=== PATIENT | female | born 1930 | race Caucasian/White ===

== ENCOUNTER 2016-09-17 15:48 | Emergency (ER) | payer OTHER ==
[~2016-09-17 15:48] MED LIST: ATEN50TA8 PO; ONDA8TAB6 PO; OXYC-57 PO; SYN50 PO; SYN75 PO
[2016-09-17 15:53] VITALS: BP 174/114; PULSE 59; TEMP 36.6; O2SAT 96
--- NOTE | 2016-09-17 16:42 | EMERGENCY ROOM VISIT NOTE ---
History Report prepared by Tanner: Jean Pierre Haynes Under the Supervision of: Dr. Ishan Durán D.O. First contact with patient: 16:10 Chief Complaint: GI ASSESSMENT Stated Complaint: CONSTIPATION History of Present Illness The patient is an 86 year old female who presents to the Emergency Room with complaints of a persistent constipation beginning several days prior to arrival. As per daughter, the patient has been taking Metamucil for quite some time for constipation. The patient states she reached up her rectum to see what the problem was, and she felt a "bump" and scratched it. The daughter states the patient has not been eating enough. She notes the patient does not want to eat more, because she believes her previous meal has not been defecated. The patient denies a fever. 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 A total of 10 systems reviewed and were otherwise negative. Past Medical & Surgical Medical Problems: (1) Atrial premature beats (2) CKD (chronic kidney disease), stage III (3) Coarctation of aorta (4) DDD (degenerative disc disease) (5) Dementia (6) Dyslipidemia (7) Fall at home (8) GERD (gastroesophageal reflux disease) (9) Hypertension (10) Lacunar infarction (11) Open fracture of right distal radius and ulna (12) Osteoarthritis (13) Osteoporosis (14) Schatzki's ring (15) Thoracic compression fracture Surgical Problems: (1) H/O esophagogastroduodenoscopy (2) History of cataract surgery (3) S/p repair of cystocele and rectocele (4) S/P JAKE-BSO (total abdominal hysterectomy and bilateral salpingo- oophorectomy) Family History Heart disease Hypertension Social History Smoking Status: Never Smoker Drug Use: none Marital Status: Housing Status: lives with significant other Occupation Status: retired Current/Historical Medications Scheduled Atenolol (Tenormin), 50 MG PO BID Levothyroxine Sodium (Synthroid), 50 MCG PO ODD DAYS Levothyroxine Sodium (Synthroid), 75 MCG PO EVEN DAYS Allergies Coded Allergies: No Known Allergies (Unverified , 04/11/16) Physical Exam Vital Signs Date Time Temp Pulse Resp B/P Pulse Ox O2 Delivery O2 Flow Rate FiO2 09/17/16 15:53 36.6 59 18 174/114 96 Room Air Physical Exam CONSTITUTIONAL/VITAL SIGNS: Reviewed / noted above. GENERAL: Non-toxic in appearance. INTEGUMENTARY: Warm, dry, and [place]. HEAD: Normocephalic. EYES: without scleral icterus or trauma. ENT/OROPHARYNX: clear and moist. LYMPHADENOPATHY/NECK: Is supple without lymphadenopathy or meningismus. RESPIRATORY: Lungs clear and equal. CARDIOVASCULAR: Regular rate and rhythm. GI/ABDOMEN: Soft and nontender. No organomegaly or pulsatile mass. No rebound or guarding. Normal bowel sounds. RECTAL: Hemorrhoid int he 7 o'clock position that appears scratched and slightly irritated without active bleeding. Minimal amount of stool in the rectal vault. EXTREMITIES: Warm and well perfused. BACK: No CVA tenderness. NEUROLOGICAL: Intact without focal deficits. PSYCHIATRIC: normal affect. MUSCULOSKELETAL: Normally developed with good muscle tone. Medical Decision & Procedures ED Course 1620: Previous medical records were reviewed. The patient was evaluated in room B5. A complete history and physical examination was performed. 1640: On reevaluation, the patient is doing well. I discussed the results and findings with the patient. She verbalized agreement of the treatment plan. The patient was discharged home. Medical Decision The differential diagnoses include but are not limited to: constipation, rectal mass, rectal prolapse, hemorrhoids. This is an 86-year-old female who presents to the ED with a chief complaint that she feels like she broke something in her rectum after a attempted digital disimpaction. The patient has felt constipated recently and has been using Metamucil without success. The daughter states that the patient does not eat much and has been told in the past that she needs to eat more in order for her to have more normal bowel movements. The patient denies any abdominal pains or other symptoms. The patient's vital signs are stable. Exam reveals a nontender abdomen. It is nondistended. Rectal exam reveals an irritated hemorrhoid at the 7 o'clock position that appears to have been scratched. There was minimal stool in the rectal vault. The patient was told the results of the exam. She was told to eat more in order to have more regular bowel movements. She is felt to be stable for discharge at this point. She will follow-up with her PCP for any additional concerns or return here for worsening or new concerns. Impression Primary Impression: Hemorrhoids Additional Impression: hemorrhid abrasion Scribe Attestation The scribe's documentation has been prepared under my direction and personally reviewed by me in its entirety. I confirm that the note above accurately reflects all work, treatment, procedures, and medical decision making performed by me. Departure Information Dispostion Home / Self-Care Referrals Charla Ortiz M.D. (PCP) Forms HOME CARE DOCUMENTATION FORM, IMPORTANT VISIT INFORMATION Patient Instructions My [facility] Additional Instructions Eat more and eat regularly at least 3 times a day. Return for any concerns. Problem Qualifiers
[2017-02-15] MEDS ORDERED: ASPEC81 PO (11:47)
[2017-02-15] MEDS ORDERED: SYN75 PO (11:47)
[2017-02-15] MEDS ORDERED: LPT40 PO (11:47)
== END 2016-09-17 16:59 | disposition home or self-care (01) ==
LOC: C.EDB 15:49
DX: K64.9 Unspecified hemorrhoids (principal); S30.817A Abrasion of anus, initial encounter; X58.XXXA Exposure to other specified factors, initial encounter; I12.9 Hypertensive chronic kidney disease with stage 1 through stage 4 chronic kidney disease, or unspecified chronic kidney disease; N18.3 Chronic kidney disease, stage 3 (moderate); E78.5 Hyperlipidemia, unspecified; M19.90 Unspecified osteoarthritis, unspecified site; M81.0 Age-related osteoporosis without current pathological fracture; F03.90 Unspecified dementia, unspecified severity, without behavioral disturbance, psychotic disturbance, mood disturbance, and anxiety; Z87.81 Personal history of (healed) traumatic fracture; Z90.710 Acquired absence of both cervix and uterus; Z98.890 Other specified postprocedural states; Z79.899 Other long term (current) drug therapy; Z82.49 Family history of ischemic heart disease and other diseases of the circulatory system

== ENCOUNTER 2017-02-11 22:14 | Inpatient (IN) | payer OTHER ==
[~2017-02-11] VITALS: Ht 165.1 cm; Wt 40.0 kg
[~2017-02-11 22:14] MED LIST changes: -ONDA8TAB6 PO; -OXYC-57 PO
[2017-02-11] MEDS ORDERED: SODIUM CHLORIDE 0.9% 500ML 500 ML IV STA (22:41)
--- NOTE | 2017-02-11 22:44 | EMERGENCY ROOM VISIT NOTE ---
History Report prepared by Yaniibkerri: Lacie Francis Under the Supervision of: Dr. Mauricio Solomon M.D. First contact with patient: 22:26 Chief Complaint: STROKE SYMPTOMS Stated Complaint: CVA SX History of Present Illness The patient is an 86 year old female who presents to the Emergency Room with complaints of worsening stroke symptoms for the past 6 days. She was brought to the ED via EMS from home. The patient's family report they believe the patient has been ill for "quite a few days". Her daughter notes she visited the patient 6 days ago and noticed her speech seemed "off". The patient was walking normally at that visit. Earlier today, around 1300, two of her other daughters noticed the left side of the patients face seemed "a little droopy" and she was "mumbling and slurring", but otherwise seemed fine. The patient's told his daughters she had been "mumbling and talking weird" for the past few days. This evening around 1930 when the patients granddaughter visited, her symptoms were much more noticeable, so an ambulance was called. The patient denies any recent falls or injuries. She denies any recent fevers, headache, chest pain, shortness of breath, vomiting or urinary symptoms. She states she has been eating and drinking normally and moving her bowels and urinating normally. 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 A total of 10 systems reviewed and were otherwise negative. Past Medical & Surgical Medical Problems: (1) Atrial premature beats (2) CKD (chronic kidney disease), stage III (3) Coarctation of aorta (4) DDD (degenerative disc disease) (5) Dementia (6) Dyslipidemia (7) Fall at home (8) GERD (gastroesophageal reflux disease) (9) Hypertension (10) Lacunar infarction (11) Open fracture of right distal radius and ulna (12) Osteoarthritis (13) Osteoporosis (14) Schatzki's ring (15) Thoracic compression fracture Surgical Problems: (1) H/O esophagogastroduodenoscopy (2) History of cataract surgery (3) S/p repair of cystocele and rectocele (4) S/P JAKE-BSO (total abdominal hysterectomy and bilateral salpingo- oophorectomy) Family History Heart disease Hypertension Social History Smoking Status: Never Smoker Drug Use: none Marital Status: Housing Status: lives with significant other Occupation Status: retired Current/Historical Medications Scheduled Atenolol (Tenormin), 50 MG PO BID Levothyroxine Sodium (Synthroid), 50 MCG PO ODD DAYS Levothyroxine Sodium (Synthroid), 75 MCG PO EVEN DAYS Omeprazole (Prilosec), 20 MG PO DAILY Scheduled PRN Aspirin (Aspirin), 325 MG PO UD PRN for Pain Allergies Coded Allergies: No Known Allergies (Unverified , 02/11/17) Physical Exam Vital Signs Date Time Temp Pulse Resp B/P (MAP) Pulse Ox O2 Delivery O2 Flow Rate FiO2 02/11/17 23:37 66 21 169/84 97 Room Air 02/11/17 22:51 97 Room Air 02/11/17 22:26 69 02/11/17 22:25 37.0 62 18 179/98 97 Room Air Physical Exam GENERAL: Patient is in no acute distress. HEENT: No acute trauma, normocephalic atraumatic, mucous membranes moist, no nasal congestion, no scleral icterus. NECK: No stridor, no adenopathy, no meningismus, trachea is midline. LUNGS: Clear to auscultation bilaterally, no wheeze, no rhonchi, breath sounds equal. HEART: Subtle systolic murmur with an occasional extra beat, normal rate. ABDOMEN: Soft, nontender, bowel sounds positive, no hernias, no peritonitis. EXTREMITIES: No cyanosis or edema, full range of motion of all the joints without pain or difficulty, no signs for acute trauma. NEUROLOGIC: Speech slur noted and an occasional left facial droop when speaking. The patient is awake, seems oriented, some slight left leg drift and cerebellar disfunction, no upper extremity neurologic findings. SKIN: No rash, no jaundice, no diaphoresis. Medical Decision & Procedures ER Provider Diagnostic Interpretation: Radiology results as stated below per my review and interpretation: CHEST X-RAY No pneumonia or CHF seen. No mediastinal widening. CT HEAD No acute bleeding per my read. The radiologist read is currently pending. Laboratory Results 02/11/17 21:45 Red Blood Count 4.14, Mean Corpuscular Volume 97.6, Mean Corpuscular Hemoglobin 31.6, Mean Corpuscular Hemoglobin Concent 32.4, Mean Platelet Volume 11.6, Neutrophils (%) (Auto) 57.7, Lymphocytes (%) (Auto) 31.2, Monocytes (%) (Auto) 8.5, Eosinophils (%) (Auto) 1.8, Basophils (%) (Auto) 0.6, Neutrophils # (Auto) 5.07, Lymphocytes # (Auto) 2.74, Monocytes # (Auto) 0.75, Eosinophils # (Auto) 0.16, Basophils # (Auto) 0.05 02/11/17 21:45 Test 02/11/17 21:45 02/11/17 23:11 02/11/17 23:32 02/11/17 23:34 White Blood Count 8.79 K/uL (4.8-10.8) Red Blood Count 4.14 M/uL (4.2-5.4) Hemoglobin 13.1 g/dL (12.0-16.0) Hematocrit 40.4 % (37-47) Mean Corpuscular Volume 97.6 fL (80-100) Mean Corpuscular Hemoglobin 31.6 pg (25-34) Mean Corpuscular Hemoglobin Concent 32.4 g/dl (32-36) Platelet Count 193 K/uL (130-400) Mean Platelet Volume 11.6 fL (7.4-10.4) Neutrophils (%) (Auto) 57.7 % Lymphocytes (%) (Auto) 31.2 % Monocytes (%) (Auto) 8.5 % Eosinophils (%) (Auto) 1.8 % Basophils (%) (Auto) 0.6 % Neutrophils # (Auto) 5.07 K/uL (1.4-6.5) Lymphocytes # (Auto) 2.74 K/uL (1.2-3.4) Monocytes # (Auto) 0.75 K/uL (0.11-0.59) Eosinophils # (Auto) 0.16 K/uL (0-0.5) Basophils # (Auto) 0.05 K/uL (0-0.2) RDW Standard Deviation 49.2 fL (36.4-46.3) RDW Coefficient of Variation 13.7 % (11.5-14.5) Immature Granulocyte % (Auto) 0.2 % Immature Granulocyte # (Auto) 0.02 K/uL (0.00-0.02) Prothrombin Time 11.4 SECONDS (9.0-12.0) Prothromb Time International Ratio 1.1 (0.9-1.1) Activated Partial Thromboplast Time 25.7 SECONDS (21.0-31.0) Partial Thromboplastin Ratio 1.0 Anion Gap 5.0 mmol/L (3-11) Est Creatinine Clear Calc Drug Dose 19.0 ml/min Estimated GFR () 36.4 Estimated GFR (Non- 31.4 BUN/Creatinine Ratio 15.2 (10-20) Calcium Level 9.7 mg/dl (8.5-10.1) Magnesium Level 2.2 mg/dl (1.8-2.4) Total Bilirubin 0.6 mg/dl (0.2-1) Direct Bilirubin 0.1 mg/dl (0-0.2) Aspartate Amino Transf (AST/SGOT) 22 U/L (15-37) Alanine Aminotransferase (ALT/SGPT) 25 U/L (12-78) Alkaline Phosphatase 52 U/L (45-117) Total Creatine Kinase 77 U/L (26-192) Creatine Kinase MB 0.7 ng/ml (0.5-3.6) Creatine Kinase MB Ratio 0.9 (0-3.0) Total Protein 7.4 gm/dl (6.4-8.2) Albumin 4.0 gm/dl (3.4-5.0) Thyroid Stimulating Hormone (TSH) 18.700 uIu/ml (0.300-4.500) Free Thyroxine 1.02 ng/dl (0.80-1.60) Ammonia 20.0 umol/L (11-32) Bedside Glucose 85 mg/dl (70-90) Bedside Prothrombin Time INR 1.1 (0.9-1.1) Test 02/11/17 23:40 Urine Color YELLOW Urine Appearance CLEAR (CLEAR) Urine pH 8.0 (4.5-7.5) Urine Specific Simpson 1.009 (1.000-1.030) Urine Protein NEG (NEG) Urine Glucose (UA) NEG (NEG) Urine Ketones NEG (NEG) Urine Occult Blood NEG (NEG) Urine Nitrite NEG (NEG) Urine Bilirubin NEG (NEG) Urine Urobilinogen NEG (NEG) Urine Leukocyte Esterase NEG (NEG) Urine Opiates Screen NEG (NEG) Urine Methadone, Qualitative NEG (NEG) Urine Barbiturates NEG (NEG) Urine Phencyclidine (PCP) Level NEG (NEG) Ur Amphetamine/Methamphetamine NEG (NEG) MDMA (Ecstasy) Screen NEG (NEG) Urine Benzodiazepines Screen NEG (NEG) Urine Cocaine Metabolite NEG (NEG) Urine Marijuana (THC) NEG (NEG) Laboratory results reviewed by me. Medications Administered Medications (Trade) Dose Ordered Sig/Wily Route Start Time Stop Time Status Last Admin Dose Admin Sodium Chloride 500 ml @ 999 mls/hr Q31M STAT IV 02/11/17 22:41 02/11/17 23:11 DC 02/12/17 00:09 999 MLS/HR ECG Indication: weakness Rate (beats per minute): 70 Rhythm: sinus rhythm Findings: PAC, no acute ischemic change, no ectopy ED Course 2227: The patient was evaluated in room B4. A complete history and physical exam was performed. 2241: NSS 500 ml @ 999 mls/hr IV. 0035: I discussed the patients case with Dr. Bal, [facility] Hospitalist. The patient will be further evaluated. 0045: I reevaluated the patient. She is resting comfortably. I discussed her results and my recommendation she remain in the hospital for further evaluation and management and her family verbalized complete understanding and agreement. Medical Decision The differential diagnoses considered include stroke, intracranial bleeding, liver or renal failure, electrolyte imbalance, UTI, infection, dehydration. There is no leukocytosis or worrisome anemia. No significant electrolyte abnormality, kidney failure or hepatitis. Thyroid testing suggests the use of thyroid medication. Urinalysis does not show infection. Urine tox is negative. EKG shows a sinus rhythm with PACs, no acute ischemia. Cardiac enzyme testing times one is not consistent with acute cardiac injury. Chest film does not show pneumonia or CHF. No mediastinal widening. Brain CT reading is still pending however, on my review, there was no acute bleed or mass effect. There was no midline shift. Ammonia level is not elevated. The patient received IV saline, she is not a candidate for TPA as she has had ongoing symptoms for 6 days. Her presentation though is concerning for a subacute CVA. I spoke to the patient's family, case management is involved. Further care in the hospital and further workup is required. The on-call hospitalist has been consulted. Medication Reconcilliation Current Medication List: was personally reviewed by me Blood Pressure Screening Patient's blood pressure: Elevated blood pressure Blood pressure disposition: Referred to PCP Consults Time Called: 29 Consulting Physician: Angela Mcconnell Hospitalist Returned Call: 34 I discussed the patients case with Angela Mcconnell Hospitalist. The patient will be further evaluated. Impression Primary Impression: Stroke-like symptoms Scribe Attestation The scribe's documentation has been prepared under my direction and personally reviewed by me in its entirety. I confirm that the note above accurately reflects all work, treatment, procedures, and medical decision making performed by me. Departure Information Dispostion Being Evaluated By Hospitalist Referrals Charla Ortiz M.D. (PCP) Patient Instructions My [facility] Stroke History Time Last Known Well 6 days ago Stroke t-PA Criteria Reviewed Does NOT meet criteria for t-PA Reason t-PA Not Given Treatment not indicated (Last known well time was 6 days ago)
[2017-02-11 23:01] LABS: BASO % 0.6 %; BASO ABS # 0.05 K/uL (0-0.2); COMPLETE YES; EOS % 1.8 %; HEMATOCRIT 40.4 % (37-47); IG% 0.2 %; LYMPH % 31.2 %; LYMPH ABS # 2.74 K/uL (1.2-3.4); MEAN CELL VOLUME 97.6 fL (80-100); MEAN CORPUSCULAR HEMOGLOBIN 31.6 pg (25-34); MEAN CORPUSCULAR HGB CONC 32.4 g/dl (32-36); MEAN PLATELET VOLUME 11.6 fL (7.4-10.4); MONO % 8.5 %; NEUT % 57.7 %; PLATELET COUNT 193 K/uL (130-400); RED BLOOD COUNT 4.14 M/uL (4.2-5.4); WHITE BLOOD COUNT 8.79 K/uL (4.8-10.8)
[2017-02-11 23:08] LABS: BLOOD UREA NITROGEN 23 mg/dl (7-18); BUN/CREATININE RATIO 15.2 (10-20); CALCIUM 9.7 mg/dl (8.5-10.1); CARBON DIOXIDE 30 mmol/L (21-32); CHLORIDE 107 mmol/L (98-107); GLUCOSE 97 mg/dl (70-99); MAGNESIUM 2.2 mg/dl (1.8-2.4); SODIUM 142 mmol/L (136-145)
[2017-02-11 23:09] LABS: INR 1.1 (0.9-1.1); PROTHROMBIN TIME (PATIENT) 11.4 SECONDS (9.0-12.0)
[2017-02-11] MEDS ORDERED: PRLSR20 PO (23:13)
[2017-02-11] MEDS ORDERED: ASPI325T45 PO (23:13)
[2017-02-11 23:18] LABS: CKMB/CK RATIO 0.9 (0-3.0)
[2017-02-11 23:30] LABS: ALKALINE PHOSPHATASE 52 U/L (45-117); ALT/SGPT 25 U/L (12-78); AST/SGOT 22 U/L (15-37)
[2017-02-11 23:58] LABS: URINE APPEARANCE CLEAR (CLEAR); URINE BILIRUBIN NEG (NEG); URINE COLOR YELLOW; URINE NITRITE NEG (NEG); URINE SPECIFIC GRAVITY 1.009 (1.000-1.030); UROBILINOGEN NEG (NEG)
[2017-02-12] VITALS (8 sets, daily range): BP systolic 154–203; BP diastolic 69–102; PULSE 57–83; TEMP 36.4–36.8; O2SAT 94–98; Ht 165.1 cm; Wt 40.0 kg
[2017-02-12 00:07] LABS: MANUAL MICROSCOPIC REQUIRED? NO; REVIEW REQ? NO
[2017-02-12 00:29] LABS: BENZODIAZEPINE, URINE NEG (NEG); COCAINE,URINE NEG (NEG); PHENCYCLIDINE, URINE NEG (NEG)
[2017-02-12] MEDS ORDERED: ACETAMINOPHEN 325 MG TAB PO PRN (01:30)
[2017-02-12] MEDS ORDERED: ONDANSETRON INJ 2 MG/ML 2 ML VIAL IV PRN (01:30)
[2017-02-12] MEDS: NSS + 20MEQ KCL 1000ML 1,000 ML IV SCH ×2 (02:58→15:50)
--- NOTE | 2017-02-12 03:54 | HISTORY & PHYSICAL EXAMINATION ---
DATE OF ADMISSION: 02/12/2017 PRIMARY CARE PHYSICIAN: Dr. Ortiz. CHIEF COMPLAINT: Slurred speech with left facial droop for the last few days. HISTORY OF PRESENT COMPLAINT: She is an 86-year-old female with significant past medical history including chronic kidney disease, atrial premature beats, general osteoarthritis and osteoporosis, hypothyroidism, esophageal reflux, history of lacunar infarct, hypertension and hyperlipidemia. Apparently was noted by the family members that she has occasional slurred or garbled speech and also they noticed that she has some left facial droop as well. They were thinking it will go away but the condition got worse. She has saliva accumulating on the left cheek area and she does have slurred speech with definite left facial droop as of today. She has generalized weakness but does not have any weakness on any side and does not have any numbness or tingling in any of the extremities. She denies history of any visual symptoms, any headache or any blurred vision. She does not have any palpitation, any chest pain, any fever, chills or rigors, or shortness of breath. In the Emergency Room, she was hemodynamically stable and initial investigation came out to be unremarkable including CT scan of the head that did not show any acute bleed, but given the history and the finding and probable CVA, she was admitted to telemetry unit. PAST MEDICAL HISTORY: Significant for chronic kidney disease, history of atrial premature beats, general osteoarthritis and osteoporosis, hypertension, hyperlipidemia, esophageal stricture with reflux, and remote history of lacunar infarct. PAST SURGICAL HISTORY: Significant for total abdominal hysterectomy with bilateral salpingo-oophorectomy, repair of rectum and vagina, cataract surgery, history of fixation of right distal radial and ulnar fracture. FAMILY HISTORY: Mother from a stroke at the age of 69. Father had COPD. Sister osteoporosis. SOCIAL HISTORY: She is . She has 4 children. She lives with her . She never used any alcohol and/or any cigarettes and she has been reasonably active. REVIEW OF SYSTEMS: Other systemic review unremarkable except those mentioned in history of present illness. ALLERGIES: NKDA. MEDICATIONS: She has been on aspirin that was given today 325 mg, atenolol 50 mg twice daily, Synthroid 50 mcg odd days and 75 mcg even days, omeprazole 20 mg daily. PHYSICAL EXAMINATION: GENERAL: On examination in the Emergency Room, she was not having any acute distress, but her speech was slightly dysarthric and she did have left facial droop. VITAL SIGNS: Temperature 37.0, pulse of 66, blood pressure 169/84, saturation 97% on room air. HEENT: Unremarkable except left facial droop. No facial nerve palsy. NECK: Supple. CHEST: Clear to auscultation bilaterally. HEART: S1, S2, Irregular. ABDOMEN: Soft, benign, nontender, no organomegaly. Bowel sounds present. EXTREMITIES: Negative. MUSCULOSKELETAL: Did not show any acute arthritis involving any joint. CENTRAL NERVOUS SYSTEM: She was alert, awake, oriented x3. Cranial nerves II-XII intact except minimal left facial droop. No deviation of the eyes and/or outstretched tongue. No focal sensory and/or motor deficit. DTRs are 1 to 2+ in the lower extremities. Plantars downgoing. LABORATORY DATA: Noted today, white count was 8.79, H&H 13.1/40.4, platelet was 193. Sodium 142, potassium 4.0, chloride 107, carbon dioxide 30, BUN 23, creatinine 1.50, random glucose 85. LFTs unremarkable. Troponin negative. TSH was 18.700 and free T4 was normal at 1.02. PT/INR unremarkable, that is normal. Urine tox screen pending. UA examination negative. EKG was in sinus rhythm, rate of 70 per minute, normal axis and minor ST-T wave changes but nothing specific. Chest x-ray reported as negative. CT scan, we have not got the full report yet but verbally told that there is no bleeding and no acute infarct. IMPRESSION AND PLAN: 1. Stroke with left facial droop. Doubt Barroso,s Palsy The patient has been started on aspirin, we will continue with that. We will get MRI and MRA of the head and also monitor the patient and get an echocardiogram. Carotid ultrasound will be done as well.Neurology consulted. 2. Chronic kidney disease, seems to be stable. We will give a small amount of IV fluid and monitor kidney function. 3. Acquired hypothyroidism. TSH is pretty high, T4 is normal. We will get free T3 and continue with 75 mcg of thyroxine right now. 4. Esophageal reflux. Continue with Protonix. 5. Hypertension. Continue with beta jerrica. 6. Hyperlipidemia. Has not been taking any medications. We will add atorvastatin. 7. Deep venous thrombosis prophylaxis with subcutaneous heparin. 8. Code status. Discussed with the patient and family members, she will be full code. In my clinical judgment, the beneficiary meets criteria as per CMS for 2-midnight stay in the hospital. THIERRY
[2017-02-12] MEDS: HEPARIN SOD 5000 UNIT/0.5 ML CARP SQ SCH ×3 (06:17→21:06)
[2017-02-12] MEDS: LEVOTHYROXINE 75 MCG TAB PO SCH (06:17)
--- NOTE | 2017-02-12 06:32 | DIAGNOSTIC IMAGING REPORT ---
HEAD CT NONCONTRAST CT DOSE: 614.27 mGy.cm HISTORY: Right leg weakness. Stroke TECHNIQUE: Multiaxial CT images of the head were performed without the use of intravenous contrast. Automated exposure control was utilized for this study. A dose lowering technique was utilized adhering to the principles of ALARA. Comparison: None. Findings: Mucosal thickening and a fluid level within the right maxillary sinus resulting in near-complete opacification. The mastoid air cells are clear. The calvarium and skull base are intact. There is no mass, hematoma, midline shift, acute infarct. White matter hypodensity is nonspecific but suggestive of microvascular ischemic change. The ventricles and sulci demonstrate mild age-related involutional changes. A 1 cm hypodensity within the left external capsule. This is consistent within age-indeterminate lacunar infarct. Impression: 1. A 1 cm hypodensity within the left external capsule. This is consistent within age-indeterminate lacunar infarct. 2. No acute territorial infarct or intracranial hemorrhage. 3. Mild atrophy and microvascular ischemic changes. Electronically signed by: Conrad Romero M.D. 02/12/2017 6:31 AM Dictated Date/Time: 02/12/2017 6:29 AM
[2017-02-12 06:51] LABS: HEMATOCRIT 42.1 % (37-47); MEAN CELL VOLUME 97.9 fL (80-100); MEAN CORPUSCULAR HEMOGLOBIN 32.1 pg (25-34); MEAN CORPUSCULAR HGB CONC 32.8 g/dl (32-36); PLATELET COUNT 194 K/uL (130-400); WHITE BLOOD COUNT 8.23 K/uL (4.8-10.8)
[2017-02-12 07:22] LABS: BUN/CREATININE RATIO 14.6 (10-20); CALCIUM 9.1 mg/dl (8.5-10.1); CREATININE 1.2 mg/dl (0.60-1.20); MAGNESIUM 2.1 mg/dl (1.8-2.4); POTASSIUM 3.7 mmol/L (3.5-5.1)
[2017-02-12 07:26] LABS: CHOLESTEROL/HDL RATIO 3.7
--- NOTE | 2017-02-12 07:55 | DIAGNOSTIC IMAGING REPORT ---
CHEST ONE VIEW PORTABLE HISTORY: Stroke like symptoms. Slurred speech. COMPARISON: None. FINDINGS: The lungs are hyperexpanded with apical predominant emphysematous changes. No pneumothorax. No pleural effusions. The heart is normal in size. The right lung is clear. Interstitial thickening at the left lung base. IMPRESSION: 1. Emphysema. 2. Left basilar interstitial thickening. This could represent atelectasis or developing pneumonia. Electronically signed by: Conrad Romero M.D. 02/12/2017 7:54 AM Dictated Date/Time: 02/12/2017 7:53 AM
[2017-02-12] MEDS: ATORVASTATIN 40 MG TAB PO SCH (07:58)
[2017-02-12] MEDS: ASPIRIN 81 MG ECTAB PO SCH (07:58)
[2017-02-12] MEDS: PANTOprazole SOD 40 MG TAB PO SCH (09:00)
--- NOTE | 2017-02-12 14:20 | NEUROLOGY CONSULTATION ---
DATE OF CONSULTATION: 02/12/2017 REASON FOR CONSULTATION: Slurred speech, facial droop. HISTORY OF PRESENT ILLNESS: The patient is an 86-year-old right-handed female with chronic kidney disease, atrial premature beats, osteoarthritis, osteoporosis, hypothyroidism, reflux, radiographic lacunar infarction, hypertension, hyperlipidemia. Yesterday it was noted that the patient's speech was slurred and they monitored the patient. The dysarthria was waxing and waning and then associated with a flattened left nasolabial fold. Because of the ongoing symptoms, she was brought into the Emergency Room. Her daughter did note that she had some difficulty getting up, but they did not notice any unilateral weakness. The patient denies any neurologic symptoms. Her daughter indicates that she has some cognitive impairment. She lives with her . On questioning, the patient is awake and alert. She does not know why she is in the hospital but is able to state that she is in the hospital. She does not know the year. She denies any headache, chest pain, palpitations. Per review of systems and the hospitalist, there was no shortness of breath. CT of the head noncontrast shows a left external capsule lacune, mild atrophy and microvascular changes. Chest x-ray: Emphysema, basilar interstitial thickening. PAST MEDICAL HISTORY: As above including esophageal stricture. PAST SURGICAL HISTORY: Total abdominal hysterectomy, bilateral salpingo-oophorectomy, repair of rectum and vagina, cataract surgery right, fixation of right distal radial ulnar fracture. FAMILY HISTORY: Mother had a stroke at 69. Father, COPD. SOCIAL HISTORY: Nonsmoker, nondrinker. Lives with her . REVIEW OF SYSTEMS: As above, otherwise unreliable. ALLERGIES: No allergies. The patient was not on aspirin prior to this event, was given 325 at the hospital, atenolol 50, Synthroid and omeprazole. LABORATORY DATA: White count 8.8, H&H 13/40, platelet count 193. PT 11.4, PTT 25.7. Chemistry profile: BUN, creatinine 23/1.5, otherwise unremarkable with the exception of TSH being 18.7. Urinalysis negative. Tox screen negative. Electrocardiogram, sinus rhythm with PACs. PHYSICAL EXAMINATION: GENERAL: The patient is awake and alert. Her speech is modestly dysarthric. There is no word finding difficulty. There is some denial. HEENT: There are no carotid bruits. HEART: No heart murmurs. Regular rate and rhythm. LUNGS: Clear. ABDOMEN: Soft and nontender. She is fairly cachectic in appearance. NEUROLOGIC: Pupils are postsurgical on the right, normal on the optic nerve. Unable to visualize the optic nerve on the left. There are normal carvalho. There is a left visual extinction, modest dysarthria, decreased left nasolabial fold. Motor: left arm 4/5, left lower extremity 4+/5. There is a left drift with decreased left rapid alternating movements. Symmetric reflexes. Query left double simultaneous stimulation extinction. Reflexes symmetric. Toes downgoing. Gait not tested. IMPRESSION: Presumed large vessel right middle cerebral artery infarction. PLAN: Antiplatelet therapy, permissive hypertension. MRI brain, carotid ultrasound, echo, telemetric monitoring. PT, OT, speech therapy consultation. DIONTED
--- NOTE | 2017-02-12 20:25 | Progress Note ---
Medicine Progress Note Date & Time of Visit: Feb 12, 2017 at 18:15 . Subjective Admitted last night with left facial droop and dysarthria. No new neuro symptoms today. No headache. No chest pain. No cough or SOB. No nausea or vomiting. and daughter visiting. . Objective Last 8 Hrs Date Time Temp Pulse Resp B/P (MAP) Pulse Ox O2 Delivery O2 Flow Rate FiO2 02/12/17 19:35 36.6 60 18 183/69 (107) 96 Room Air 02/12/17 16:00 Room Air 02/12/17 15:23 36.7 62 18 167/87 (113) 97 Room Air 02/12/17 15:22 83 94 Physical Exam: General- no distress Eyes- anicteric Neck- no JVD Lungs- clear to A&P Heart- RRR Abdomen- + BS, soft, nontender Extremities- no pretibial edema or calf tenderness Neuro- alert; confused; EOMI; left facial palsy; dysarthria; left upper extremity 4/5; plantar reflexes downgoing bilat . Laboratory Results: Last 24 Hours Test 02/11/17 21:45 02/11/17 23:11 02/11/17 23:32 02/11/17 23:34 White Blood Count 8.79 K/uL Red Blood Count 4.14 M/uL Hemoglobin 13.1 g/dL Hematocrit 40.4 % Mean Corpuscular Volume 97.6 fL Mean Corpuscular Hemoglobin 31.6 pg Mean Corpuscular Hemoglobin Concent 32.4 g/dl Platelet Count 193 K/uL Mean Platelet Volume 11.6 fL Neutrophils (%) (Auto) 57.7 % Lymphocytes (%) (Auto) 31.2 % Monocytes (%) (Auto) 8.5 % Eosinophils (%) (Auto) 1.8 % Basophils (%) (Auto) 0.6 % Neutrophils # (Auto) 5.07 K/uL Lymphocytes # (Auto) 2.74 K/uL Monocytes # (Auto) 0.75 K/uL Eosinophils # (Auto) 0.16 K/uL Basophils # (Auto) 0.05 K/uL RDW Standard Deviation 49.2 fL RDW Coefficient of Variation 13.7 % Immature Granulocyte % (Auto) 0.2 % Immature Granulocyte # (Auto) 0.02 K/uL Prothrombin Time 11.4 SECONDS Prothromb Time International Ratio 1.1 Activated Partial Thromboplast Time 25.7 SECONDS Partial Thromboplastin Ratio 1.0 Sodium Level 142 mmol/L Potassium Level 4.0 mmol/L Chloride Level 107 mmol/L Carbon Dioxide Level 30 mmol/L Anion Gap 5.0 mmol/L Blood Urea Nitrogen 23 mg/dl Creatinine 1.50 mg/dl Est Creatinine Clear Calc Drug Dose 19.0 ml/min Estimated GFR () 36.4 Estimated GFR (Non- 31.4 BUN/Creatinine Ratio 15.2 Random Glucose 97 mg/dl Calcium Level 9.7 mg/dl Magnesium Level 2.2 mg/dl Total Bilirubin 0.6 mg/dl Direct Bilirubin 0.1 mg/dl Aspartate Amino Transf (AST/SGOT) 22 U/L Alanine Aminotransferase (ALT/SGPT) 25 U/L Alkaline Phosphatase 52 U/L Total Creatine Kinase 77 U/L Creatine Kinase MB 0.7 ng/ml Creatine Kinase MB Ratio 0.9 Troponin I < 0.015 ng/ml Total Protein 7.4 gm/dl Albumin 4.0 gm/dl Thyroid Stimulating Hormone (TSH) 18.700 uIu/ml Free Thyroxine 1.02 ng/dl Ammonia 20.0 umol/L Bedside Glucose 85 mg/dl Bedside Prothrombin Time INR 1.1 Test 02/11/17 23:40 02/12/17 06:33 Urine Color YELLOW Urine Appearance CLEAR Urine pH 8.0 Urine Specific Bernard 1.009 Urine Protein NEG Urine Glucose (UA) NEG Urine Ketones NEG Urine Occult Blood NEG Urine Nitrite NEG Urine Bilirubin NEG Urine Urobilinogen NEG Urine Leukocyte Esterase NEG Urine Opiates Screen NEG Urine Methadone, Qualitative NEG Urine Barbiturates NEG Urine Phencyclidine (PCP) Level NEG Ur Amphetamine/Methamphetamine NEG MDMA (Ecstasy) Screen NEG Urine Benzodiazepines Screen NEG Urine Cocaine Metabolite NEG Urine Marijuana (THC) NEG White Blood Count 8.23 K/uL Red Blood Count 4.30 M/uL Hemoglobin 13.8 g/dL Hematocrit 42.1 % Mean Corpuscular Volume 97.9 fL Mean Corpuscular Hemoglobin 32.1 pg Mean Corpuscular Hemoglobin Concent 32.8 g/dl RDW Standard Deviation 49.1 fL RDW Coefficient of Variation 13.8 % Platelet Count 194 K/uL Mean Platelet Volume 11.0 fL Sodium Level 145 mmol/L Potassium Level 3.7 mmol/L Chloride Level 108 mmol/L Carbon Dioxide Level 30 mmol/L Anion Gap 7.0 mmol/L Blood Urea Nitrogen 18 mg/dl Creatinine 1.20 mg/dl Est Creatinine Clear Calc Drug Dose 22.8 ml/min Estimated GFR () 47.7 Estimated GFR (Non- 41.2 BUN/Creatinine Ratio 14.6 Random Glucose 83 mg/dl Calcium Level 9.1 mg/dl Magnesium Level 2.1 mg/dl Triglycerides Level 75 mg/dl Cholesterol Level 276 mg/dl HDL Cholesterol 75 mg/dl LDL Cholesterol, Calculated 186 mg/dl VLDL Cholesterol, Calculated 15 mg/dl Cholesterol/HDL Ratio 3.7 Free Triiodothyronine 1.62 pg/ml Assessment & Plan PROBABLE RIGHT MCA STROKE Neurology consulted. 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 MRI pending. Not candidate for TPA due to duration of symptoms. Continue aspirin. LDL-c = 186. Started on atorvastatin. Check carotid duplex. Check echo. 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 HYPERTENSION BP's elevated, but should allow permissive hypertensive in setting of acute stroke. Continue atenolol. Follow. Gradually titrate Rx. CKD IV History of CKD IV with baseline creatinine around 1.7 and estimated GFR in high 20's. Serum creatinine 1.5 at admission. Follow. GERD Continue PPI. HYPOTHYROIDISM TSH 18.7. Prescribed levothyroxine as outpatient. Need to review labs and Rx history. DEMENTIA Baseline cognitive impairment. Monitor for delirium. VTE PROPHYLAXIS SQ heparin. Ambulate. DISPOSITION Anticipate need for skilled care or rehab. Consult Case Management. Primary Care follow-up at [facility]. . Consultants: Neurology with Dr. Avilez. . Current Inpatient Medications: Current Inpatient Medications Medications (Trade) Dose Ordered Sig/Wily Route Start Time Stop Time Status Last Admin Dose Admin Heparin Sodium (Porcine) (Heparin Sq 5000 Unit/0.5ml) 5,000 unit Q8 SQ 02/12/17 06:00 03/14/17 05:59 02/12/17 14:00 5,000 UNIT Potassium Chloride/Sodium Chloride 1,000 ml @ 75 mls/hr [id number] IV 02/12/17 02:30 03/14/17 02:29 02/12/17 02:58 75 MLS/HR Acetaminophen (Tylenol Tab) 650 mg Q4H PRN PO 02/12/17 01:30 03/14/17 01:29 Ondansetron HCl (Zofran Inj) 4 mg Q6H PRN IV 02/12/17 01:30 03/14/17 01:29 Atenolol (Tenormin Tab) 50 mg BID PO 02/12/17 09:00 03/14/17 08:59 02/12/17 07:58 50 MG Levothyroxine Sodium (Synthroid Tab) 75 mcg DAILYBB PO 02/12/17 06:00 03/14/17 06:59 02/12/17 06:17 75 MCG Pantoprazole Sodium (Protonix Tab) 40 mg QAM PO 02/12/17 09:00 03/14/17 08:59 02/12/17 09:00 40 MG Aspirin (Ecotrin Tab) 81 mg QAM PO 02/12/17 09:00 03/14/17 08:59 02/12/17 07:58 81 MG Atorvastatin Calcium (Lipitor Tab) 40 mg QAM PO 02/12/17 09:00 03/14/17 08:59 02/12/17 07:58 40 MG Enteral Nutritional Formula (Boost Pudding) 1 cup BID@1000,2100 PO 02/12/17 21:00 03/14/17 20:59
[2017-02-12] MEDS: BOOST VANILLA PUDDING CUP PO SCH (21:22)
--- NOTE | 2017-02-12 22:22 | DIAGNOSTIC IMAGING REPORT ---
ORBIT RADIOGRAPHS 3 VIEWS HISTORY: pre-MRI screening. COMPARISON: None. FINDINGS: There are no radiopaque foreign bodies identified within the orbits. IMPRESSION: No radiopaque foreign bodies identified within the orbits. Electronically signed by: Gabe Salvador M.D. 02/12/2017 10:21 PM Dictated Date/Time: 02/12/2017 10:21 PM
[2017-02-13] VITALS (8 sets, daily range): BP systolic 139–178; BP diastolic 63–89; PULSE 53–72; TEMP 36.6–37.1; O2SAT 95–98
[2017-02-13] MEDS: LEVOTHYROXINE 75 MCG TAB PO SCH (06:05)
--- NOTE | 2017-02-13 06:49 | DIAGNOSTIC IMAGING REPORT ---
BRAIN WITHOUT CONTRAST HISTORY: Mental status change STROKE TECHNIQUE: Multiplanar multisequence MRI of the brain was performed without the use of contrast. COMPARISON STUDY: None. FINDINGS: Focal acute infarct posterior aspect right internal capsule. No additional acute ischemic foci are identified. Findings of age-related chronic small vessel change and atrophy. Midline. Mild mucosal thickening of the ethmoid and maxillary sinuses. IMPRESSION: 1. Acute infarct posterior aspect right internal capsule. 2. Age-related atrophy and chronic small vessel change. The above report was generated using voice recognition software. It may contain grammatical, syntax or spelling errors. Electronically signed by: Ant Johnson M.D. 02/13/2017 6:48 AM Dictated Date/Time: 02/13/2017 6:46 AM
--- NOTE | 2017-02-13 08:13 | DIAGNOSTIC IMAGING REPORT ---
ULTRASOUND OF THE CAROTID ARTERIES CLINICAL HISTORY: Stroke. COMPARISON STUDY: No priors. TECHNIQUE: Real-time, grayscale, and color Doppler sonography of the carotid arteries is performed. Images are reviewed in the transverse and longitudinal planes. FINDINGS: Blood pressure in the right arm measures 149/85 and blood pressure in the left arm measures 153/91. The carotid arteries are patent bilaterally and demonstrate antegrade flow. There is mild atherosclerotic plaque seen. Normal doppler arterial waveforms are seen throughout. Velocity measurements are listed below. Common carotid peak systolic velocity (cm/sec): RIGHT: 62 LEFT: 63 ICA proximal peak systolic velocity (cm/sec): RIGHT: 42 LEFT: 33 ICA mid peak systolic velocity (cm/sec): RIGHT: 49 LEFT: 35 ICA distal peak systolic velocity (cm/sec): RIGHT: 41 LEFT: 36 ICA/CC peak systolic ratio: RIGHT: 0.8 LEFT: 0.6 Antegrade flow was shown in the vertebral arteries. The external carotid arteries are patent. IMPRESSION: 1. There is no sonographic evidence of hemodynamically significant stenosis in the right or left carotid arterial system. 2. Antegrade flow is shown in the vertebral arteries. Electronically signed by: Mauricio Tavera M.D. 02/13/2017 8:12 AM Dictated Date/Time: 02/13/2017 8:11 AM
--- NOTE | 2017-02-13 08:38 | ECHOCARDIOGRAM REPORT ---
*NOTICE TO RECEIVING DEMOCRAT AGENCY This information is strictly Confidential and protected under [place] law. [place] law prohibits you from making any further disclosure of this information unless further disclosure is expressly permitted by the written consent of the person to whom it pertains or is authorized by law. A general authorization for the release of medical or other information is not sufficient for this purpose. Hospital accepts no responsibility if the information is made available to any other person, INCLUDING THE PATIENT. Interpretation Summary * Name: SANDRA HARTLEY Study Date: 02/12/2017 12:55 PM BP: 167/79 mmHg * Patient Location: C.2T\S\S231\S\1 HR: 57 * : 1930 (M/d/yyyy) Gender: Female Height: 65 in * Age: 86 yrs Ethnicity: CA Weight: 96 lb * Ordering Physician: Jammie Bal * Referring Physician: Self, Referred * Performed By: Marlen Jackson RDCS * * Reason For Study: Stroke, rule out embolic source * BSA: 1.4 m2 * -- Conclusions -- * Technically difficult and limited study due to patient characteristics. * The left ventricular wall motion is normal. * Ejection Fraction = 55-60%. * The aortic valve is not well visualized. * The Doppler evaluation of the aortic valve in the apical window is insufficient. * Based on limited evaluation on the parasternal images (image 17 and 18/66) there is no significant aortic stenosis or aortic regurgitation. * There is no evidence of atrial septal defect, but resolution does not allow assessment for a patent foramen ovale. Procedure Details * A complete two-dimensional transthoracic echocardiogram was performed (2D, M-mode, Doppler and color flow Doppler). * Limited views were obtained. * There were technical limitations due to patient'sinability to cooperate Left Ventricle * The left ventricle is normal in size. * There is normal left ventricular wall thickness. * Left ventricular systolic function is normal. * Ejection Fraction = 55-60%. * The left ventricular wall motion is normal. Right Ventricle * The right ventricle is normal size. * The right ventricular systolic function is normal as assessed by tricuspid annular plane systolic excursion (TAPSE) (normal >1.5 cm). Atria * The left atrial size is normal. * Right atrial size is normal. * There is no evidence of atrial septal defect, but resolution does not allow assessment for a patent foramen ovale. Mitral Valve * The mitral valve is normal. * There is no mitral valve stenosis. * Significant mitral regurgitation is absent. Tricuspid Valve * The tricuspid valve is normal. * There is no tricuspid stenosis. * Significant tricuspid regurgitation is absent. Aortic Valve * The aortic valve is not well visualized. * The Doppler evaluation of the aortic valve in the apical window is insufficient. Based on limited evaluation on the parasternal images (image 17 and 18/66) there is no significnt aortic stenosis or aortic regurgitation. Pulmonic Valve * The pulmonary valve is not well seen, but the Doppler examination is normal without significant regurgitation or stenosis. Great Vessels * The aortic root and proximal ascending aorta are normal sized. Pericardium/Pleural * There is no pericardial effusion. Great Vessels * Normal inferior vena cava size and collapsability with sniff indicates a normal right atrial pressure of 3 mmHg Left Ventricular Diastolic Function * Grade I diastolic dysfunction, (abnormal relaxation pattern). MMode 2D Measurements and Calculations IVSd 0.79 cm LVIDd 2.8 cm LVIDs 2.1 cm LVPWd 0.84 cm IVS/LVPW 0.94 FS 26.9 % EDV(Teich) 30.7 ml ESV(Teich) 14.1 ml EF(Teich) 54.2 % EDV(cubed) 23.0 ml ESV(cubed) 9.0 ml EF(cubed) 60.9 % LV mass(C)d 55.8 grams LV mass(C)dI 38.5 grams/m\S\2 SV(Teich) 16.7 ml SI(Teich) 11.5 ml/m\S\2 SV(cubed) 14.0 ml SI(cubed) 9.7 ml/m\S\2 Ao root diam 3.2 cm Ao root area 8.1 cm\S\2 ACS 1.7 cm LA dimension 2.1 cm asc Aorta Diam 2.9 cm LA/Ao 0.66 LVOT diam 2.0 cm LVOT area 3.1 cm\S\2 Doppler Measurements and Calculations MV E max maryann 72.3 cm/sec MV A max maryann 83.9 cm/sec MV E/A 0.86 MV dec time 0.17 sec Ao V2 max 73.7 cm/sec Ao max PG 2.2 mmHg Ao max PG (full) 0.65 mmHg MELA(V,A) 2.6 cm\S\2 MELA(V,D) 2.6 cm\S\2 LV V1 max PG 1.5 mmHg LV V1 max 61.6 cm/sec PA acc slope 413.3 cm/sec\S\2 PA acc time 0.11 sec TR max maryann 266.0 cm/sec PA pr(Accel) 31.5 mmHg
--- NOTE | 2017-02-13 08:45 | Clinical Documentation Query ---
KACY Pak : CLINICAL DOCUMENTATION QUERIES QUERY 1 OF 2 Patient is an 86 year old female admitted for evaluation and treatment of probable right MCA stroke. BMI noted to be 14.5 kg/m*m. EMR weight of 39.6 Kg this a.m. EMR weight 04/12/16 was 58 Kg. This represents a loss of greater than 31% of initial body weight over this ten month interval. She has been seen in consultation by a administrative staff supervisor. Noted to be eating only 25-50% of meals. Risk factors include advanced age, prior CVA, current CVA. She is being monitored with I/O, daily weights, and serial chemistries, and seen in consultation by administrative staff supervisor and MOLD MA[employer]ER P[employer] MOLDS with appropriate recommendations, ordered boost pudding. In your clinical opinion is this patient being managed for: (x ) Severe protein-calorie malnutrition ( ) Other explanation of clinical findings (Please Explain) ( ) Unable to determine (Please Define) ( ) Need to Discuss ( ) Not Agree The medical record reflects the following clinical findings, treatment, and risk factors. Clinical Indicators: As above Treatment: I/O, daily weights, and serial chemistries, and seen in consultation by administrative staff supervisor and MOLD MAKER P[employer] MOLDS with appropriate recommendations, ordered boost pudding. Risk Factors: advanced age, prior CVA, current CVA, dementia ASPEN Criteria: Malnutrition in Chronic Illness Severe Malnutrition defined by 2 of the following 6 criteria: Severe Malnutrition ENERGY INTAKE <75% of estimated energy requirement for > 1month <75% of estimated energy requirement for > 1 month WEIGHT >5%/1 month >7.5%/3 months >10%/6months >20%/1year BODY FAT *loss of SQ fat from the orbits, triceps, or fat overlying the ribs MUSCLE MASS *muscle wasting at the temples, clavicles, shoulders, interosseous spaces, scapula, thigh, calf FLUID ACCUMULATION *localized or generalized edema of the extremities, vulva, scrotum weight loss may be masked by edema TOOL AND DIE MAKER APPRENTICE STRENGTH N/A measurably decreased per the device's standards QUERY 2 OF 2 Per prior query, BMI noted to be 14.5 kg/m*m. In order to capture this clinically important information, the associated medical condition/diagnosis must explicitly be documented by the provider. Consider clarification as suggested below. Thank you. In your clinical opinion is this patient being managed for: ( ) Cachexia; BMI 14.5 kg/m*m ( ) Other explanation of clinical findings (Please Explain) ( ) Unable to determine (Please Define) ( ) Need to Discuss ( x ) Not Agree The medical record reflects the following clinical findings, treatment, and risk factors. Clinical Indicators: As above Treatment: Diet, speech consultations, Boost pudding supplementation, I/O, daily weights, serial labs. Risk Factors: Age, dementia Please clarify and document your clinical opinion in the progress notes and discharge summary. Terms such as "probable", "suspected", "likely", "questionable", "possible", or "still to be ruled out" are acceptable. IF IN AGREEMENT, YOU MUST DOCUMENT ABOVE DIAGNOSTIC STATEMENT IN DAILY PROGRESS NOTES AND DISCHARGE SUMMARY. This document is not part of the patient's record. Thank You, Orlando Soliman, SOREN [phone]
[2017-02-13] MEDS: ATORVASTATIN 40 MG TAB PO SCH (08:46)
[2017-02-13] MEDS: ASPIRIN 81 MG ECTAB PO SCH (08:46)
[2017-02-13] MEDS: PANTOprazole SOD 40 MG TAB PO SCH (08:47)
[2017-02-13] MEDS: HEPARIN SOD 5000 UNIT/0.5 ML CARP SQ SCH ×2 (08:48→20:10)
[2017-02-13] MEDS: BOOST VANILLA PUDDING CUP PO SCH ×2 (10:00→20:04)
--- NOTE | 2017-02-13 13:37 | DIAGNOSTIC IMAGING REPORT ---
VIDEO SWALLOW HISTORY: Aspiration s/s of aspiration secondary to cava TECHNIQUE: Video fluoroscopic evaluation of swallowing was performed in the AP and lateral projections by the speech pathology staff. The patient is fed nectar-thick and thin liquid barium, a barium coated wafer, and barium pudding. FLUOROSCOPY TIME: 2.2 minutes. COMPARISON STUDY: None. FINDINGS: There is normal hyoid excursion and epiglottic deflection. Evidence for positive aspiration with thin liquids. Semisolid liquids/thicker liquids showed a smaller degree of penetration. Persistent penetration despite several attempts at swallow modification. IMPRESSION: 1. Persistent aspiration, most severe within liquids. 2. Please see the speech pathologist report for detailed findings and recommendations. The above report was generated using voice recognition software. It may contain grammatical, syntax or spelling errors. Electronically signed by: Ant Johnson M.D. 02/13/2017 1:35 PM Dictated Date/Time: 02/13/2017 1:33 PM
[2017-02-13] MEDS ORDERED: GUAIFENESIN SUGAR FREE 100 MG/5 ML UDC PO PRN (14:00)
--- NOTE | 2017-02-13 21:18 | Progress Note ---
Medicine Progress Note Date & Time of Visit: Feb 13, 2017 at 18:10 . Subjective No headache. No new neurologic symptoms. Video fluoroscopic swallowing study performed earlier today; aspiration of thin liquids was noted and recommendations made by Speech Therapy. No chest pain. No cough or shortness of breath. No nausea or vomiting. . Objective Last 8 Hrs Date Time Temp Pulse Resp B/P (MAP) Pulse Ox O2 Delivery O2 Flow Rate FiO2 02/13/17 20:00 Room Air 02/13/17 19:16 36.9 59 20 158/80 (106) 96 Room Air 02/13/17 16:00 Room Air 02/13/17 15:32 36.9 58 18 156/77 (103) 96 Room Air Physical Exam: General- no distress Eyes- anicteric Neck- no JVD Lungs- clear to A&P Heart- RRR Abdomen- + BS, soft, nontender Extremities- no pretibial edema or calf tenderness Neuro- alert; somewhat confused; EOMI; left facial palsy; dysarthria; left upper extremity 4/5; left lower extremity 4+/5 . Assessment & Plan STROKE Neurology consulted. 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 MRI demonstrated acute nonhemorrhagic stroke involving the posterior aspect of the right internal capsule as well as age-related atrophy and chronic small vessel changes. Not candidate for TPA due to duration of symptoms. Continue aspirin. LDL-c = 186. Started on atorvastatin. Carotid duplex did not show any significant stenosis. Echocardiogram did not show any significant valvular disease, mural thrombi. PT / OT / LOSS PREVENTION REPRESENTATIVE evaluations obtained. VTE fluoroscopic swallowing study demonstrated aspiration of thin liquids. LOSS PREVENTION REPRESENTATIVE recommendations: 1.Mechanical soft diet with NECTAR thick liquids. Please use thickener in liquid supplements. 2.Aspiration and GERD precautions. NO straws. Fully upright for all p.o. intake and for 30-60 minutes after meals. HOB elevated to 30 degrees at all times, to include while asleep. 3.Safe swallow strategies: NO MIXED consistencies (i.e., cereal in milk, soups that contain solid pieces and liquid, fruit such as oranges and grapefruit). Monitor for oral pocketing during meals. Cues for double swallow after each bite/sip. 4.Stringent oral care to reduce oral bacteria that can be aspirated in saliva. This includes brushing all surfaces of the tongue and mouth prior to and after meals, as well as before bed. 5.Speech will continue to follow as an inpatient. Would benefit from continued speech therapy upon discharge. This includes further education and training with diet and safe swallow strategies. Would also benefit from generalized pharyngeal strengthening exercises and thermal gustatory stimulation for improved swallow reflex time. HYPERTENSION BP's elevated at times, but should allow permissive hypertensive in setting of acute stroke. Blood pressure this morning 149/66. Continue atenolol. Follow and titrate therapy. CKD IV History of CKD IV with baseline creatinine around 1.7 and estimated GFR in high 20's. Serum creatinine 1.5 at admission. Follow. GERD Continue PPI. HYPOTHYROIDISM TSH 18.7. Current dose of levothyroxine is 50 mcg alternating with 75 mcg. Increase dose to 75 mcg daily. DEMENTIA Baseline cognitive impairment. Monitor for delirium. VTE PROPHYLAXIS SQ heparin. Ambulate. DISPOSITION Anticipate need for skilled care or rehab. Consult Case Management. Primary Care follow-up at [facility]. . Consultants: Neurology with Dr. Avilez. . Current Inpatient Medications: Current Inpatient Medications Medications (Trade) Dose Ordered Sig/Wily Route Start Time Stop Time Status Last Admin Dose Admin Acetaminophen (Tylenol Tab) 650 mg Q4H PRN PO 02/12/17 01:30 03/14/17 01:29 Ondansetron HCl (Zofran Inj) 4 mg Q6H PRN IV 02/12/17 01:30 03/14/17 01:29 Atenolol (Tenormin Tab) 50 mg BID PO 02/12/17 09:00 03/14/17 08:59 02/13/17 08:47 50 MG Levothyroxine Sodium (Synthroid Tab) 75 mcg DAILYBB PO 02/12/17 06:00 03/14/17 06:59 02/13/17 06:05 75 MCG Pantoprazole Sodium (Protonix Tab) 40 mg QAM PO 02/12/17 09:00 03/14/17 08:59 02/13/17 08:47 40 MG Aspirin (Ecotrin Tab) 81 mg QAM PO 02/12/17 09:00 03/14/17 08:59 02/13/17 08:46 81 MG Atorvastatin Calcium (Lipitor Tab) 40 mg QAM PO 02/12/17 09:00 03/14/17 08:59 02/13/17 08:46 40 MG Enteral Nutritional Formula (Boost Pudding) 1 cup BID@1000,2100 PO 02/12/17 21:00 03/14/17 20:59 02/13/17 20:04 1 CUP Heparin Sodium (Porcine) (Heparin Sq 5000 Unit/0.5ml) 5,000 unit Q12 SQ 02/13/17 09:00 03/15/17 08:59 02/13/17 20:10 5,000 UNIT
--- NOTE | 2017-02-13 22:51 | PROGRESS NOTE ---
DATE: 02/13/2017 I am seeing Mrs. Stokes in followup. Her MRI of the brain shows an acute infarct in the posterior limb of the right internal capsule. Carotid ultrasound shows no significant stenosis. Video fluoroscopy shows persistent aspiration, most severe with liquids. Echocardiogram, no significant aortic stenosis, no ASD. Resolution does not allow for a PFO. PHYSICAL EXAMINATION: The patient is awake and alert. Speech is modestly dysarthric. There is a mild flattening of the left nasolabial fold. I do not appreciate any visual extinction. There is minimal weakness to the left arm. IMPRESSION: Lacunar infarction, subclinical neglect, although better today. Continue risk factor modification, antiplatelet therapy. Given the lacunar nature and the patient's age, I do not think she needs any outpatient telemetric monitoring. We will sign off at present. Please reconsult if there are concerns. THIERRY
[2017-02-14 04:00] VITALS: BP 148/77; PULSE 53; TEMP 36.8; O2SAT 97
[2017-02-14] MEDS: LEVOTHYROXINE 75 MCG TAB PO SCH (05:48)
[2017-02-14 07:02] VITALS: BP 159/87; PULSE 54; TEMP 36.7; O2SAT 95
[2017-02-14 07:08] LABS: BUN/CREATININE RATIO 14.4 (10-20); CALCIUM 9.1 mg/dl (8.5-10.1); CREATININE 1.4 mg/dl (0.60-1.20); POTASSIUM 3.9 mmol/L (3.5-5.1)
[2017-02-14] MEDS: PANTOprazole SOD 40 MG TAB PO SCH (07:55)
[2017-02-14] MEDS: ATORVASTATIN 40 MG TAB PO SCH (07:55)
[2017-02-14] MEDS: ASPIRIN 81 MG ECTAB PO SCH (07:55)
[2017-02-14] MEDS: HEPARIN SOD 5000 UNIT/0.5 ML CARP SQ SCH ×2 (07:57→20:56)
--- NOTE | 2017-02-14 09:30 | Clinical Documentation Query ---
Dr. VASQUEZ [facility] : CLINICAL DOCUMENTATION QUERY Patient is an 86 year old female admitted for evaluation and treatment of probable right MCA stroke. BMI noted to be 14.5 kg/m*m. EMR weight of 39.6 Kg this a.m. EMR weight 04/12/16 was 58 Kg. This represents a loss of greater than 31% of initial body weight over this ten month interval. She has been seen in consultation by a chucker. Noted to be eating only 25-50% of meals. Risk factors include advanced age, prior CVA, current CVA. She is being monitored with I/O, daily weights, and serial chemistries, and seen in consultation by chucker and HEATER WORKER with appropriate recommendations, ordered boost pudding. In your clinical opinion is this patient being managed for: ( X ) Severe protein-calorie malnutrition ( ) Other explanation of clinical findings (Please Explain) ( ) Unable to determine (Please Define) ( ) Need to Discuss ( ) Not Agree The medical record reflects the following clinical findings, treatment, and risk factors. Clinical Indicators: As above Treatment: I/O, daily weights, and serial chemistries, and seen in consultation by chucker and HEATER WORKER with appropriate recommendations, ordered boost pudding. Risk Factors: advanced age, prior CVA, current CVA Please clarify and document your clinical opinion in the progress notes and discharge summary. Terms such as "probable", "suspected", "likely", "questionable", "possible", or "still to be ruled out" are acceptable. IF IN AGREEMENT, YOU MUST DOCUMENT ABOVE DIAGNOSTIC STATEMENT IN DAILY PROGRESS NOTES AND DISCHARGE SUMMARY. This document is not part of the patient's record. Thank You, Orlando Soliman, RN [phone]
[2017-02-14] MEDS: BOOST VANILLA PUDDING CUP PO SCH ×2 (10:28→20:47)
--- NOTE | 2017-02-14 10:42 | Progress Note ---
Internal Med Progress Note Date of Service: Feb 14, 2017. Provider Documentation: SUBJECTIVE: Seen and examined at bedside. Family at bedside. States she feels better today Still has dysarthria No new symptoms Denies chest pain, SOB. Poor historian OBJECTIVE: Vital Signs-as noted below Physical Exam: General Appearance:Moderately built and nourished, no apparent distress Head: normocephalic, Atraumatic Eyes: Anicteric Neck: supple, Trachea midline Respiratory/Chest: Normal breath sounds, CTA Cardiovascular: S1, S2, No murmur Abdomen/GI:Soft, Non tender, Bowel sounds present Extremities/Musculoskelatal:normal inspection, no edema Neurologic/Psych: left facial palsy; dysarthria; LUE and LLE 4/5 Skin: normal color, warm Lab data as noted below. ASSESSMENT & PLAN: Acute CVA CT Head:age-indeterminate left external capsule lacunar Infarct MRI Head: acute stroke involving the posterior aspect of the right internal capsule as well as age-related atrophy and chronic small vessel changes. Not candidate for TPA Continue aspirin, Lipitor Carotid duplex: no significant stenosis. ECHO: No significant valvular disease or mural thrombi. PT / OT / SOUND EDITOR evaluations: Recommends Rehab Appreciate Neurology input Swallow eval:demonstrated aspiration of thin liquids. Appreciate Neurology help Speech recommendations: Mechanical soft diet with NECTAR thick liquids Aspiration and GERD precautions Needs continued speech therapy upon discharge HTN Labile Continue atenolol Monitor CKD IV Baseline Cr: around 1.7 monitor renal function GERD Continue PPI HYPOTHYROIDISM TSH 18.7. On levothyroxine is 50 mcg alternating with 75 mcg at home Continue increased dose to 75 mcg daily. Needs repeat Thyroid function test as outpatient Severe Protein-calorie malnutrition: BMI:14.7 DEMENTIA Baseline cognitive impairment Monitor for delirium DVT Px: SQ heparin. DISPOSITION Needs rehab per PT Primary Care follow[facility]up at [facility]. Likely discharge tomorrow if stable PROCEDURES: CT Head: 1. A 1 cm hypodensity within the left external capsule. This is consistent within age-indeterminate lacunar infarct. 2. No acute territorial infarct or intracranial hemorrhage. 3. Mild atrophy and microvascular ischemic changes. MRI Brain: 1. Acute infarct posterior aspect right internal capsule. 2. Age-related atrophy and chronic small vessel change. Vital Signs: Date Time Temp Pulse Resp B/P (MAP) Pulse Ox O2 Delivery O2 Flow Rate FiO2 8/15/17 08:00 Room Air 02/14/17 07:02 36.7 54 16 159/87 (111) 95 Room Air 02/14/17 04:00 Room Air 02/14/17 04:00 36.8 53 18 148/77 (100) 97 Room Air 02/14/17 00:00 Room Air 02/13/17 23:41 36.9 55 18 163/81 (108) 97 Room Air 02/13/17 23:10 36.6 56 16 139/82 (101) 96 Room Air 02/13/17 20:00 Room Air 02/13/17 19:16 36.9 59 20 158/80 (106) 96 Room Air 02/13/17 16:00 Room Air 02/13/17 15:32 36.9 58 18 156/77 (103) 96 Room Air 02/13/17 12:10 36.7 66 18 149/63 (91) 98 02/13/17 12:00 Room Air Lab Results: Results Past 24 Hours Test 02/14/17 06:06 Range/Units Sodium Level 142 136-145 mmol/L Potassium Level 3.9 3.5-5.1 mmol/L Chloride Level 109 98-107 mmol/L Carbon Dioxide Level 27 21-32 mmol/L Anion Gap 6.0 3-11 mmol/L Blood Urea Nitrogen 20 7-18 mg/dl Creatinine 1.40 0.60-1.20 mg/dl Est Creatinine Clear Calc Drug Dose 18.6 ml/min Estimated GFR () 39.6 Estimated GFR (Non- 34.2 BUN/Creatinine Ratio 14.4 10-20 Random Glucose 77 70-99 mg/dl Calcium Level 9.1 8.5-10.1 mg/dl
[2017-02-14 11:33] VITALS: BP 104/70; PULSE 69; TEMP 36.5; O2SAT 97
[2017-02-14 15:21] VITALS: BP 161/80; PULSE 71; TEMP 36.6; O2SAT 100
[2017-02-14] MEDS ORDERED: NURSING VERBAL MED ORDER ONE (18:15)
[2017-02-14] MEDS ORDERED: POLYETHYLENE (MIRALAX) 17 GM PACK PO ONE (18:30)
[2017-02-14 19:49] VITALS: BP 169/96; PULSE 61; TEMP 36.7; O2SAT 94
[2017-02-15] VITALS (8 sets, daily range): BP systolic 125–181; BP diastolic 71–112; PULSE 48–67; TEMP 36.3–36.5; O2SAT 95–98
[2017-02-15] MEDS: LEVOTHYROXINE 75 MCG TAB PO SCH (06:00)
[2017-02-15] MEDS: HEPARIN SOD 5000 UNIT/0.5 ML CARP SQ SCH (08:05)
[2017-02-15] MEDS: ASPIRIN 81 MG ECTAB PO SCH (08:08)
[2017-02-15] MEDS: PANTOprazole SOD 40 MG TAB PO SCH (08:08)
[2017-02-15] MEDS: ATORVASTATIN 40 MG TAB PO SCH (08:08)
[2017-02-15] MEDS: BOOST VANILLA PUDDING CUP PO SCH (08:09)
[2017-02-15] MEDS ORDERED: POLYETHYLENE (MIRALAX) 17 GM PACK PO SCH (09:00)
--- NOTE | 2017-02-15 11:44 | Progress Note ---
Internal Med Progress Note Date of Service: Feb 15, 2017. Provider Documentation: SUBJECTIVE: Seen and examined at bedside. Feels well No new complaints Still has dysarthria Denies chest pain, SOB. Poor historian No family at bedside OBJECTIVE: Vital Signs-as noted below Physical Exam: General Appearance:Moderately built and nourished, no apparent distress Head: normocephalic, Atraumatic Eyes: Anicteric Neck: supple, Trachea midline Respiratory/Chest: Normal breath sounds, CTA Cardiovascular: S1, S2, No murmur Abdomen/GI:Soft, Non tender, Bowel sounds present Extremities/Musculoskelatal:normal inspection, no edema Neurologic/Psych: left facial palsy; dysarthria; LUE and LLE 4/5 Skin: normal color, warm Lab data as noted below. ASSESSMENT & PLAN: Acute CVA CT Head:age-indeterminate left external capsule lacunar Infarct MRI Head: acute stroke involving the posterior aspect of the right internal capsule as well as age-related atrophy and chronic small vessel changes. Not candidate for TPA Continue aspirin, Lipitor Carotid duplex: no significant stenosis. ECHO: No significant valvular disease or mural thrombi. PT / OT / YEAST CAKE CUTTER evaluations: Recommends Rehab Appreciate Neurology input Swallow eval:demonstrated aspiration of thin liquids. Appreciate Neurology help Speech recommendations: Mechanical soft diet with NECTAR thick liquids Aspiration and GERD precautions Needs continued speech therapy upon discharge HTN Labile Continue atenolol Monitor CKD IV Baseline Cr: around 1.7 monitor renal function GERD Continue PPI HYPOTHYROIDISM TSH 18.7. On levothyroxine is 50 mcg alternating with 75 mcg at home Continue increased dose to 75 mcg daily. Needs repeat Thyroid function test as outpatient Severe Protein-calorie malnutrition: BMI:14.7 DEMENTIA Baseline cognitive impairment Monitor for delirium DVT Px: SQ heparin. DISPOSITION Plan to discharge to SNF today Follow up with on 02/20/17 at 1:25pm Follow up with Neurology in 1 month as advised Get Thyroid function tests in 4-6 weeks and follow up with your Primary care physician as advised Seek immediate medical attention if your symptoms reoccur or worsen Recommendations from Speech Therapy: 1.Mechanical soft diet with NECTAR thick liquids. Please use thickener in liquid supplements. 2.Aspiration and GERD precautions. NO straws. Fully upright for all p.o. intake and for 30-60 minutes after meals. HOB elevated to 30 degrees at all times, to include while asleep. 3.Safe swallow strategies: NO MIXED consistencies (i.e., cereal in milk, soups that contain solid pieces and liquid, fruit such as oranges and grapefruit). Monitor for oral pocketing during meals. Cues for double swallow after each bite/sip. 4.Stringent oral care to reduce oral bacteria that can be aspirated in saliva. This includes brushing all surfaces of the tongue and mouth prior to and after meals, as well as before bed. 5.Speech will continue to follow as an inpatient. Would benefit from continued speech therapy upon discharge. This includes further education and training with diet and safe swallow strategies. Would also benefit from generalized pharyngeal strengthening exercises and thermal gustatory stimulation for improved swallow reflex time. PROCEDURES: CT Head: 1. A 1 cm hypodensity within the left external capsule. This is consistent within age-indeterminate lacunar infarct. 2. No acute territorial infarct or intracranial hemorrhage. 3. Mild atrophy and microvascular ischemic changes. MRI Brain: 1. Acute infarct posterior aspect right internal capsule. 2. Age-related atrophy and chronic small vessel change. Vital Signs: Date Time Temp Pulse Resp B/P (MAP) Pulse Ox O2 Delivery O2 Flow Rate FiO2 02/15/17 08:00 67 02/15/17 08:00 Room Air 02/15/17 07:24 36.5 57 18 158/112 (127) 95 Room Air 02/15/17 04:19 36.3 48 16 126/73 (90) 97 Room Air 02/15/17 04:00 97 Room Air 02/15/17 00:33 157/88 (111) 02/15/17 00:00 36.5 51 20 181/87 (118) 98 Room Air 02/15/17 00:00 98 Room Air 02/14/17 20:00 Room Air 02/14/17 19:49 36.7 61 16 169/96 (120) 94 Room Air 02/14/17 15:50 Room Air 02/14/17 15:21 36.6 71 18 161/80 (107) 100 Room Air 02/14/17 12:00 Room Air
[2017-02-15] MEDS ORDERED: SYN75 PO (11:47)
[2017-02-15] MEDS ORDERED: ASPEC81 PO (11:47)
[2017-02-15] MEDS ORDERED: LPT40 PO (11:47)
--- NOTE | 2017-02-15 11:51 | Discharge Summary ---
Discharge Summary Date of Service Feb 15, 2017. Discharge Summary Admission Date: Feb 12, 2017 at 01:39 Discharge Date: Feb 15, 2017 Discharge Disposition: Rehab Principal Diagnosis: Acute CVA Procedures: CT Head: 1. A 1 cm hypodensity within the left external capsule. This is consistent within age-indeterminate lacunar infarct. 2. No acute territorial infarct or intracranial hemorrhage. 3. Mild atrophy and microvascular ischemic changes. MRI Brain: 1. Acute infarct posterior aspect right internal capsule. 2. Age-related atrophy and chronic small vessel change. Carotid USD: 1. There is no sonographic evidence of hemodynamically significant stenosis in the right or left carotid arterial system. 2. Antegrade flow is shown in the vertebral arteries. Video Swallow: 1. Persistent aspiration, most severe within liquids. 2. Please see the speech pathologist report for detailed findings and recommendations. ECHO: * Technically difficult and limited study due to patient characteristics. * The left ventricular wall motion is normal. * Ejection Fraction = 55-60%. * The aortic valve is not well visualized. * The Doppler evaluation of the aortic valve in the apical window is insufficient. * Based on limited evaluation on the parasternal images (image 17 and 18/66) there is no significant aortic stenosis or aortic regurgitation. * There is no evidence of atrial septal defect, but resolution does not allow assessment for a patent foramen ovale. Consultations: Neurology with Dr. Avilez. . Pending Studies/Follow-Up: Follow up with on 02/20/17 at 1:25pm Follow up with Neurology in 1 month as advised Get Thyroid function tests in 4-6 weeks and follow up with your Primary care physician as advised Seek immediate medical attention if your symptoms reoccur or worsen Recommendations from Speech Therapy: 1.Mechanical soft diet with NECTAR thick liquids. Please use thickener in liquid supplements. 2.Aspiration and GERD precautions. NO straws. Fully upright for all p.o. intake and for 30-60 minutes after meals. HOB elevated to 30 degrees at all times, to include while asleep. 3.Safe swallow strategies: NO MIXED consistencies (i.e., cereal in milk, soups that contain solid pieces and liquid, fruit such as oranges and grapefruit). Monitor for oral pocketing during meals. Cues for double swallow after each bite/sip. 4.Stringent oral care to reduce oral bacteria that can be aspirated in saliva. This includes brushing all surfaces of the tongue and mouth prior to and after meals, as well as before bed. 5.Speech will continue to follow as an inpatient. Would benefit from continued speech therapy upon discharge. This includes further education and training with diet and safe swallow strategies. Would also benefit from generalized pharyngeal strengthening exercises and thermal gustatory stimulation for improved swallow reflex time. Medication Reconciliation New Medications: Aspirin (Aspirin EC Low Dose) 81 Mg Ectab 81 MG PO QAM for 30 Days, #30 Atorvastatin (Atorvastatin Calcium) 40 Mg Tab 40 MG PO QAM for 30 Days, #30 TAB Levothyroxine Sodium (Synthroid) 75 Mcg Tab 75 MCG PO DAILYBB for 30 Days, #30 TAB Continued Medications: Atenolol (Tenormin) 50 Mg Tab 50 MG PO BID, TAB Omeprazole (Prilosec) 20 Mg Capcr 20 MG PO DAILY, CAP Discontinued Medications: Aspirin (Aspirin) 325 Mg Tab 325 MG PO UD PRN for Pain Levothyroxine Sodium (Synthroid) 50 Mcg Tab 50 MCG PO ODD DAYS Levothyroxine Sodium (Synthroid) 75 Mcg Tab 75 MCG PO EVEN DAYS Admission Information HPI (per Admitting provider): CHIEF COMPLAINT: Slurred speech with left facial droop for the last few days. HISTORY OF PRESENT COMPLAINT: She is an 86-year-old female with significant past medical history including chronic kidney disease, atrial premature beats, general osteoarthritis and osteoporosis, hypothyroidism, esophageal reflux, history of lacunar infarct, hypertension and hyperlipidemia. Apparently was noted by the family members that she has occasional slurred or garbled speech and also they noticed that she has some left facial droop as well. They were thinking it will go away but the condition got worse. She has saliva accumulating on the left cheek area and she does have slurred speech with definite left facial droop as of today. She has generalized weakness but does not have any weakness on any side and does not have any numbness or tingling in any of the extremities. She denies history of any visual symptoms, any headache or any blurred vision. She does not have any palpitation, any chest pain, any fever, chills or rigors, or shortness of breath. In the Emergency Room, she was hemodynamically stable and initial investigation came out to be unremarkable including CT scan of the head that did not show any acute bleed, but given the history and the finding and probable CVA, she was admitted to telemetry unit. Physical Exam (per Admitting): PHYSICAL EXAMINATION: GENERAL: On examination in the Emergency Room, she was not having any acute distress, but her speech was slightly dysarthric and she did have left facial droop. VITAL SIGNS: Temperature 37.0, pulse of 66, blood pressure 169/84, saturation 97% on room air. HEENT: Unremarkable except left facial droop. No facial nerve palsy. NECK: Supple. CHEST: Clear to auscultation bilaterally. HEART: S1, S2, Irregular. ABDOMEN: Soft, benign, nontender, no organomegaly. Bowel sounds present. EXTREMITIES: Negative. MUSCULOSKELETAL: Did not show any acute arthritis involving any joint. CENTRAL NERVOUS SYSTEM: She was alert, awake, oriented x3. Cranial nerves II-XII intact except minimal left facial droop. No deviation of the eyes and/or outstretched tongue. No focal sensory and/or motor deficit. DTRs are 1 to 2+ in the lower extremities. Plantars downgoing. Hospital Course Acute CVA CT Head:age-indeterminate left external capsule lacunar Infarct MRI Head: acute stroke involving the posterior aspect of the right internal capsule as well as age-related atrophy and chronic small vessel changes. Not candidate for TPA Continue aspirin, Lipitor Carotid duplex: no significant stenosis. ECHO: No significant valvular disease or mural thrombi. PT / OT / [employer] evaluations: Recommends Rehab Appreciate Neurology input Swallow eval:demonstrated aspiration of thin liquids. Appreciate Neurology help Speech recommendations: Mechanical soft diet with NECTAR thick liquids Aspiration and GERD precautions Needs continued speech therapy upon discharge HTN Labile Continue atenolol Monitor CKD IV Baseline Cr: around 1.7 monitor renal function GERD Continue PPI HYPOTHYROIDISM TSH 18.7. On levothyroxine is 50 mcg alternating with 75 mcg at home Continue increased dose to 75 mcg daily. Needs repeat Thyroid function test as outpatient Severe Protein-calorie malnutrition: BMI:14.7 DEMENTIA Baseline cognitive impairment Monitor for delirium DVT Px: SQ heparin. DISPOSITION Plan to discharge to SNF today Follow up with on 02/20/17 at 1:25pm Follow up with Neurology in 1 month as advised Get Thyroid function tests in 4-6 weeks and follow up with your Primary care physician as advised Seek immediate medical attention if your symptoms reoccur or worsen Recommendations from Speech Therapy: 1.Mechanical soft diet with NECTAR thick liquids. Please use thickener in liquid supplements. 2.Aspiration and GERD precautions. NO straws. Fully upright for all p.o. intake and for 30-60 minutes after meals. HOB elevated to 30 degrees at all times, to include while asleep. 3.Safe swallow strategies: NO MIXED consistencies (i.e., cereal in milk, soups that contain solid pieces and liquid, fruit such as oranges and grapefruit). Monitor for oral pocketing during meals. Cues for double swallow after each bite/sip. 4.Stringent oral care to reduce oral bacteria that can be aspirated in saliva. This includes brushing all surfaces of the tongue and mouth prior to and after meals, as well as before bed. 5.Speech will continue to follow as an inpatient. Would benefit from continued speech therapy upon discharge. This includes further education and training with diet and safe swallow strategies. Would also benefit from generalized pharyngeal strengthening exercises and thermal gustatory stimulation for improved swallow reflex time. PROCEDURES: CT Head: 1. A 1 cm hypodensity within the left external capsule. This is consistent within age-indeterminate lacunar infarct. 2. No acute territorial infarct or intracranial hemorrhage. 3. Mild atrophy and microvascular ischemic changes. MRI Brain: 1. Acute infarct posterior aspect right internal capsule. 2. Age-related atrophy and chronic small vessel change. Total time spent on discharge = 38 minutes This includes examination of the patient, discharge planning, medication reconciliation, and communication with other providers. Discharge Instructions Discharge Instructions Date of Service Feb 15, 2017. Admission Reason for Admission: Htn,Stroke-Like Symptoms Discharge Discharge Diagnosis / Problem: Acute CVA Discharge Goals Goal(s): Decrease discomfort, Improve function Activity Recommendations Activity Limitations: resume your previous activity Exercise/Sports Limitations: as tolerated . Instructions / Follow-Up Instructions / Follow-Up Follow up with on 02/20/17 at 1:25pm Follow up with Neurology in 1 month as advised Get Thyroid function tests in 4-6 weeks and follow up with your Primary care physician as advised Seek immediate medical attention if your symptoms reoccur or worsen Recommendations from Speech Therapy: 1.Mechanical soft diet with NECTAR thick liquids. Please use thickener in liquid supplements. 2.Aspiration and GERD precautions. NO straws. Fully upright for all p.o. intake and for 30-60 minutes after meals. HOB elevated to 30 degrees at all times, to include while asleep. 3.Safe swallow strategies: NO MIXED consistencies (i.e., cereal in milk, soups that contain solid pieces and liquid, fruit such as oranges and grapefruit). Monitor for oral pocketing during meals. Cues for double swallow after each bite/sip. 4.Stringent oral care to reduce oral bacteria that can be aspirated in saliva. This includes brushing all surfaces of the tongue and mouth prior to and after meals, as well as before bed. 5.Speech will continue to follow as an inpatient. Would benefit from continued speech therapy upon discharge. This includes further education and training with diet and safe swallow strategies. Would also benefit from generalized pharyngeal strengthening exercises and thermal gustatory stimulation for improved swallow reflex time. Risk Factors for Stroke: You can reduce your chances of stroke by working with your medical provider to adopt a healthy lifestyle. Some specific ways to lower your chance of stroke are: * If you are a smoker, now is the time to stop smoking cigarettes * If you are diabetic, improve the control of your blood sugars * Avoid excessive amounts of alcohol * Control high blood pressure * Lose weight if you are overweight * Be sure to lead an active lifestyle * Eat a healthy diet low in salt, cholesterol and fat You should know about other risk factors for stroke that you are unable to control. These include: * Age 55 years or older * Male gender * Certain racial groups: , or / * Family History of Stroke, Mini stroke or Heart Attack * Sickle Cell Disease Follow Up: It is important for you to keep your follow up appointments with your medical provider. Current Hospital Diet Patient's current hospital diet: AHA Diet (Heart Healthy) Discharge Diet Recommended Diet: AHA Diet (Heart Healthy) Diet Texture: Mechanical Soft (ground) Liquid Consistency: Taylor Thick Pending Studies Studies pending at discharge: no Laboratory Results Lipid Panel Test 02/12/17 06:33 Range/Units Triglycerides Level 75 0-150 mg/dl Cholesterol Level 276 H 0-200 mg/dl HDL Cholesterol 75 mg/dl Cholesterol/HDL Ratio 3.7 LDL Cholesterol, Calculated 186 mg/dl Medical Emergencies . Who to Call and When: Medical Emergencies: Call 911 immediately if you experience any of the following warning signs and symptoms of Stroke: * Sudden numbness or weakness of the face, arm or leg, especially on one side of the body * Sudden confusion, trouble speaking or understanding * Sudden trouble seeing in one or both eyes * Sudden trouble walking, dizziness, loss of balance or coordination * Sudden severe headache with no cause Do not delay calling 911 if you experience any warning signs or symptoms of a stroke. Delay in seeking medical attention may affect what treatments can be given to you. . Non-Emergent Contact Non-Emergency issues call your: Primary Care Provider, Neurologist Call Non-Emergent contact if: you have a fever, your pain is not controlled, your pain is worsening, your pain is unusual for you, you have any medication questions If your symptoms reoccur or worsen . . "Provider Documentation" section prepared by Marcus Connolly. . Stroke Core Measures Reason no t-PA for Stroke: Treatment not indicated Reason no antithrom by day 2: Treatment provided - N/A Reason no antithrom at D/C: Treatment provided - N/A Reason no statin at D/C: Treatment provided - N/A Reason no anticoag w/a fib: Treatment not indicated VTE Core Measure Inpt VTE Proph given/why not?: Unfractionated heparin SQ <Electronically signed by Marcus Connolly MD> Signed: 02/15/17 [id number] Signed: The status of this report is Signed * If report status is Draft, the document has not been finalized by the responsible provider.
== END 2017-02-15 14:15 | DRG 64 ==
LOC: EDBD 22:14 → C.EDB 22:15 → C.2T 02-12 01:39 → ENRESERV 02-12 01:50
PROVIDERS: ADMIT Internal Medicine; ATTEND Internal Medicine
DX: I63.8 Other cerebral infarction (principal); E43 Unspecified severe protein-calorie malnutrition; N18.4 Chronic kidney disease, stage 4 (severe); R47.1 Dysarthria and anarthria; R29.810 Facial weakness; R29.706 NIHSS score 6; G83.34 Monoplegia, unspecified affecting left nondominant side; K21.9 Gastro-esophageal reflux disease without esophagitis; I12.9 Hypertensive chronic kidney disease with stage 1 through stage 4 chronic kidney disease, or unspecified chronic kidney disease; F03.90 Unspecified dementia, unspecified severity, without behavioral disturbance, psychotic disturbance, mood disturbance, and anxiety; E03.9 Hypothyroidism, unspecified; E78.5 Hyperlipidemia, unspecified; Z51.81 Encounter for therapeutic drug level monitoring; Z79.899 Other long term (current) drug therapy; Z86.73 Personal history of transient ischemic attack (TIA), and cerebral infarction without residual deficits; Z82.3 Family history of stroke; Z82.49 Family history of ischemic heart disease and other diseases of the circulatory system; Z82.5 Family history of asthma and other chronic lower respiratory diseases; Z82.62 Family history of osteoporosis

== ENCOUNTER 2017-09-25 08:13 | Emergency (ER) | payer OTHER ==
[~2017-09-25 08:13] MED LIST changes: +ASPEC81 PO; -ATEN50TA8 PO; +LPT40 PO; +PRLSR20 PO; -SYN50 PO
[2017-09-25] MEDS ORDERED: SODIUM CHLORIDE 0.9% 1000ML 1,000 ML IV STA (08:18)
[2017-09-25 08:34] VITALS: TEMP 36.4
--- NOTE | 2017-09-25 08:44 | DIAGNOSTIC IMAGING REPORT ---
CHEST ONE VIEW PORTABLE CLINICAL HISTORY: EVALUATE ALTERED MENTAL STATUS/WEAKNESS COMPARISON STUDY: 02/11/2017 FINDINGS: Emphysematous change. Mild stable cardiomegaly. Trace pleural fluid left base. IMPRESSION: Trace pleural fluid left base. Emphysematous change. The above report was generated using voice recognition software. It may contain grammatical, syntax or spelling errors. Electronically signed by: Ant Johnson M.D. 09/25/2017 8:43 AM Dictated Date/Time: 09/25/2017 8:40 AM
[2017-09-25 08:48] LABS: BASO % 0.4 %; BASO ABS # 0.04 K/uL (0-0.2); EOS % 2.8 %; EOS ABS # 0.31 K/uL (0-0.5); HEMATOCRIT 39.6 % (37-47); HEMOGLOBIN 13.1 g/dL (12.0-16.0); IG# 0.02 K/uL (0.00-0.02); LYMPH % 33.9 %; LYMPH ABS # 3.73 K/uL (1.2-3.4); MEAN CELL VOLUME 97.3 fL (80-100); MEAN CORPUSCULAR HEMOGLOBIN 32.2 pg (25-34); MEAN CORPUSCULAR HGB CONC 33.1 g/dl (32-36); MEAN PLATELET VOLUME 11.6 fL (7.4-10.4); MONO % 9.4 %; MONO ABS # 1.03 K/uL (0.11-0.59); NEUT % 53.3 %; NEUT ABS # 5.87 K/uL (1.4-6.5); PLATELET COUNT 177 K/uL (130-400); RED CELL DISTRIBUTION WIDTH CV 13.7 % (11.5-14.5); RED CELL DISTRIBUTION WIDTH SD 48.7 fL (36.4-46.3)
[2017-09-25] MEDS ORDERED: SYN75 PO (08:53)
[2017-09-25] MEDS ORDERED: ATOR-24 PO (08:53)
[2017-09-25] MEDS ORDERED: ASPI81TA28 PO (08:53)
[2017-09-25 09:00] LABS: ALBUMIN 3.6 gm/dl (3.4-5.0); ALT/SGPT 27 U/L (12-78); BLOOD UREA NITROGEN 18 mg/dl (7-18); CALCIUM 9.5 mg/dl (8.5-10.1); CARBON DIOXIDE 30 mmol/L (21-32); CREATININE 1.11 mg/dl (0.60-1.20); GLUCOSE 101 mg/dl (70-99); POTASSIUM 4.1 mmol/L (3.5-5.1); SODIUM 143 mmol/L (136-145)
[2017-09-25 09:01] LABS: INR 1.1 (0.9-1.1); PTT PATIENT 24.3 SECONDS (21.0-31.0)
[2017-09-25 09:11] LABS: ALKALINE PHOSPHATASE 74 U/L (45-117); AST/SGOT 24 U/L (15-37); CKMB 0.7 ng/ml (0.5-3.6)
[2017-09-25] MEDS ORDERED: CEFTRIAXONE SOD INJ 1 GM ADDVIAL IV STA (10:11)
[2017-09-25] MEDS ORDERED: SULF800T23 PO (10:40)
--- NOTE | 2017-09-25 10:41 | EMERGENCY ROOM VISIT NOTE ---
History Report prepared by Yaniibkerri: Donald Zhang Under the Supervision of: Dr. Ishan Durán D.O. First contact with patient: 08:17 Stated Complaint: NEAR SYNCOPE History of Present Illness The patient is a 87 year old female who presents to the Emergency Room by EMS with complaints of intermittent dizziness beginning this morning. Per family, the patient has had dizziness upon standing up today. She notes that the patient has not been drinking a lot of water recently. She also notes that the patient normally does not eat much. The patient states that she had a near syncopal event while walking after standing up just prior to arrival, prompting calling EMS. She did not lose consciousness or fall. The patient was given 500 mL of normal saline en route which improved her symptoms. She denies cough, or known fevers. The patient has a previous history of stroke with left side deficit. Source of History: patient, family Onset: This morning Quality: other (dizziness) Timing: intermittent Modifying Factors (Worsening): other (standing) Modifying Factors (Relieving): other (Normal saline) Associated Symptoms: No fevers, No cough Review of Systems See HPI for pertinent positives & negatives. A total of 10 systems reviewed and were otherwise negative. Past Medical & Surgical Medical Problems: (1) Atrial premature beats (2) CKD (chronic kidney disease), stage III (3) Coarctation of aorta (4) DDD (degenerative disc disease) (5) Dementia (6) Dyslipidemia (7) Fall at home (8) GERD (gastroesophageal reflux disease) (9) HTN (hypertension) (10) Hypertension (11) Lacunar infarction (12) Open fracture of right distal radius and ulna (13) Osteoarthritis (14) Osteoporosis (15) Schatzki's ring (16) Thoracic compression fracture Surgical Problems: (1) H/O esophagogastroduodenoscopy (2) History of cataract surgery (3) S/p repair of cystocele and rectocele (4) S/P JAKE-BSO (total abdominal hysterectomy and bilateral salpingo- oophorectomy) Family History Heart disease Hypertension Social History Smoking Status: Never Smoker Drug Use: none Marital Status: Housing Status: lives with significant other Occupation Status: retired Current/Historical Medications Scheduled Aspirin (Aspirin Ec), 81 MG PO DAILY Atenolol (Tenormin), 50 MG PO BID Atorvastatin (Lipitor), 40 MG PO DAILY Levothyroxine Sodium (Synthroid), 75 MCG PO DAILY Sulfa/Trimethoprim (Bactrim Ds 800MG/160MG), 1 TAB PO BID Allergies Coded Allergies: No Known Allergies (Unverified , 09/25/17) Physical Exam Vital Signs Date Time Temp Pulse Resp B/P (MAP) Pulse Ox O2 Delivery O2 Flow Rate FiO2 09/25/17 09:59 78 16 144/80 98 Room Air 09/25/17 08:54 75 165/103 98 Room Air 66 159/97 81 125/77 09/25/17 08:34 36.4 80 18 178/84 98 Room Air 09/25/17 08:34 75 Physical Exam CONSTITUTIONAL/VITAL SIGNS: Reviewed / noted above. GENERAL: Cachectic in appearance. INTEGUMENTARY: Warm, dry, and [place]. HEAD: Normocephalic. EYES: without scleral icterus or trauma. ENT/OROPHARYNX: clear and moist. LYMPHADENOPATHY/NECK: Is supple without lymphadenopathy or meningismus. RESPIRATORY: Lungs clear and equal. CARDIOVASCULAR: Regular rate and rhythm. GI/ABDOMEN: Soft and nontender. No organomegaly or pulsatile mass. No rebound or guarding. Normal bowel sounds. EXTREMITIES: Warm and well perfused. BACK: No CVA tenderness. NEUROLOGICAL: Mild left sided weakness compared to right (consistent with prior stroke). PSYCHIATRIC: normal affect. MUSCULOSKELETAL: Normally developed with good muscle tone. Medical Decision & Procedures ER Provider Diagnostic Interpretation: Radiology results as stated below per my review and radiologist interpretation: CHEST ONE VIEW PORTABLE FINDINGS: Emphysematous change. Mild stable cardiomegaly. Trace pleural fluid left base. IMPRESSION: Trace pleural fluid left base. Emphysematous change. The above report was generated using voice recognition software. It may contain grammatical, syntax or spelling errors. Electronically signed by: Ant Johnson M.D. 09/25/2017 8:43 AM Laboratory Results 09/25/17 07:23 Red Blood Count 4.07, Mean Corpuscular Volume 97.3, Mean Corpuscular Hemoglobin 32.2, Mean Corpuscular Hemoglobin Concent 33.1, Mean Platelet Volume 11.6, Neutrophils (%) (Auto) 53.3, Lymphocytes (%) (Auto) 33.9, Monocytes (%) (Auto) 9.4, Eosinophils (%) (Auto) 2.8, Basophils (%) (Auto) 0.4, Neutrophils # (Auto) 5.87, Lymphocytes # (Auto) 3.73, Monocytes # (Auto) 1.03, Eosinophils # (Auto) 0.31, Basophils # (Auto) 0.04 09/25/17 07:23 Test 09/25/17 07:23 09/25/17 08:21 White Blood Count 11.00 K/uL (4.8-10.8) Red Blood Count 4.07 M/uL (4.2-5.4) Hemoglobin 13.1 g/dL (12.0-16.0) Hematocrit 39.6 % (37-47) Mean Corpuscular Volume 97.3 fL (80-100) Mean Corpuscular Hemoglobin 32.2 pg (25-34) Mean Corpuscular Hemoglobin Concent 33.1 g/dl (32-36) Platelet Count 177 K/uL (130-400) Mean Platelet Volume 11.6 fL (7.4-10.4) Neutrophils (%) (Auto) 53.3 % Lymphocytes (%) (Auto) 33.9 % Monocytes (%) (Auto) 9.4 % Eosinophils (%) (Auto) 2.8 % Basophils (%) (Auto) 0.4 % Neutrophils # (Auto) 5.87 K/uL (1.4-6.5) Lymphocytes # (Auto) 3.73 K/uL (1.2-3.4) Monocytes # (Auto) 1.03 K/uL (0.11-0.59) Eosinophils # (Auto) 0.31 K/uL (0-0.5) Basophils # (Auto) 0.04 K/uL (0-0.2) RDW Standard Deviation 48.7 fL (36.4-46.3) RDW Coefficient of Variation 13.7 % (11.5-14.5) Immature Granulocyte % (Auto) 0.2 % Immature Granulocyte # (Auto) 0.02 K/uL (0.00-0.02) Prothrombin Time 11.1 SECONDS (9.0-12.0) Prothromb Time International Ratio 1.1 (0.9-1.1) Activated Partial Thromboplast Time 24.3 SECONDS (21.0-31.0) Partial Thromboplastin Ratio 0.9 Anion Gap 6.0 mmol/L (3-11) Estimated GFR () 52.1 Estimated GFR (Non- 44.9 BUN/Creatinine Ratio 15.9 (10-20) Calcium Level 9.5 mg/dl (8.5-10.1) Magnesium Level 2.1 mg/dl (1.8-2.4) Total Bilirubin 0.9 mg/dl (0.2-1) Direct Bilirubin 0.2 mg/dl (0-0.2) Aspartate Amino Transf (AST/SGOT) 24 U/L (15-37) Alanine Aminotransferase (ALT/SGPT) 27 U/L (12-78) Alkaline Phosphatase 74 U/L (45-117) Total Creatine Kinase 72 U/L (26-192) Creatine Kinase MB 0.7 ng/ml (0.5-3.6) Creatine Kinase MB Ratio 1.0 (0-3.0) Troponin I < 0.015 ng/ml (0-0.045) Total Protein 7.0 gm/dl (6.4-8.2) Albumin 3.6 gm/dl (3.4-5.0) Thyroid Stimulating Hormone (TSH) 0.377 uIu/ml (0.300-4.500) Urine Color YELLOW Urine Appearance CLEAR (CLEAR) Urine pH 7.5 (4.5-7.5) Urine Specific Porter 1.011 (1.000-1.030) Urine Protein NEG (NEG) Urine Glucose (UA) NEG (NEG) Urine Ketones NEG (NEG) Urine Occult Blood TRACE (NEG) Urine Nitrite POS (NEG) Urine Bilirubin NEG (NEG) Urine Urobilinogen NEG (NEG) Urine Leukocyte Esterase TRACE (NEG) Urine WBC (Auto) 5-10 /hpf (0-5) Urine RBC (Auto) 0-4 /hpf (0-4) Urine Hyaline Casts (Auto) 1-5 /lpf (0-5) Urine Epithelial Cells (Auto) 20-30 /lpf (0-5) Urine Bacteria (Auto) 3+ (NEG) Laboratory results as stated above per my review. Medications Administered Medications (Trade) Dose Ordered Sig/Wily Route Start Time Stop Time Status Last Admin Dose Admin Sodium Chloride 1,000 ml @ 250 mls/hr Q4H STAT IV 09/25/17 08:18 09/25/17 12:17 09/25/17 08:18 250 MLS/HR ECG Per My Interpretation Indication: other (dizziness) Rate (beats per minute): 125 Rhythm: normal sinus Findings: no ectopy, other (No ST elevations. ) ED Course 819: Previous medical records were reviewed. The patient was evaluated in room A10. A complete history and physical examination was performed. Ordered Sodium Chloride 1000 ml @ 250 mls/hr IV. 1011: Ordered Rocephin Inj 1 gm IV. 1035: On reevaluation, the patient is resting comfortably. I discussed the results and findings with the patient. She verbalized agreement of the treatment plan. The patient was discharged home. Medical Decision Differential includes acute cardiac dysrhythmia, microinfarction, CVA, TIA, dehydration, anemia, electrolyte disturbance, seizure, trauma, intracranial bleeding, acute vascular catastrophe, thoracic aortic dissection, PE, abdominal aortic aneurysm rupture. This is an 87-year-old female who presents to the ED with a chief complaint of a near syncopal episode. The patient was reportedly walking in her living room and began to feel lightheaded. She was helped to the floor by her family. The family reports that she has not been eating and drinking as much as she should. The patient denies any recent illness. She denies any specific complaints such as headaches, chest pains, focal weakness, nausea vomiting or diarrhea. The patient has had a stroke previously and has some mild left sided residual weakness from that. The patient currently has no complaints. Her vital signs are stable. Her physical exam reveals a chronically cachectic female in no distress. Her lungs were clear. Mucous membranes are moist. Abdomen is soft and nontender. Patient initial EKG showed a sinus tach at a rate of 125. Heart rate was 75 on disposition. Orthostatic vital signs were negative. Her blood pressure revealed some hypertension. Urine was positive for UTI. CBC revealed no significant anemia. Complete metabolic panel was normal, troponin and TSH are normal. Chest x-ray was negative for acute disease. The patient was started on IV Rocephin. She was given IV fluids. She will be discharged on Bactrim. Medication Reconcilliation Current Medication List: was personally reviewed by me Blood Pressure Screening Patient's blood pressure: Normal blood pressure Blood pressure disposition: Did not require urgent referral Impression Primary Impression: UTI (urinary tract infection) Additional Impression: Near syncope Scribe Attestation The scribe's documentation has been prepared under my direction and personally reviewed by me in its entirety. I confirm that the note above accurately reflects all work, treatment, procedures, and medical decision making performed by me. Departure Information Dispostion Home / Self-Care Prescriptions Sulfa/Trimethoprim (Bactrim Ds 800MG/160MG) Tab 1 TAB PO BID, #14 TAB Prov: Ishan Durán D.O. 09/25/17 Referrals Charla Ortiz M.D. (PCP) Patient Instructions My [facility], UTI Additional Instructions Follow-up with your doctor for further care and evaluation in 1-2 days. Return to the emergency department for worsening or new symptoms or any concerns. You have been examined and treated today on an emergency basis only. This is not a substitute for, or an effort to provide, complete comprehensive medical care. It is impossible to recognize and treat all injuries or illnesses in a single emergency department visit. It is therefore important that you follow up closely with your doctor. Call as soon as possible for an appointment. Bactrim as prescribed. Problem Qualifiers
[2017-09-25 11:35] VITALS: BP 144/75; PULSE 67; O2SAT 97
[2017-09-25] MEDS ORDERED: ATEN50TA8 PO (20:09)
--- NOTE | 2017-09-27 14:37 | Pharmacy Progress Note ---
ED Pharmacist Culture FollowUp Date of Service: Sep 27, 2017. Patient was sent home with a prescription for bactrim 1 tab BID X 7 days, which should cover the E. coli growing from the patient's urine culture.
== END 2017-09-25 11:50 | disposition home or self-care (01) ==
LOC: EDBD 08:13 → C.EDA 08:14
DX: N39.0 Urinary tract infection, site not specified (principal); R55 Syncope and collapse; R64 Cachexia; I12.9 Hypertensive chronic kidney disease with stage 1 through stage 4 chronic kidney disease, or unspecified chronic kidney disease; N18.3 Chronic kidney disease, stage 3 (moderate); F03.90 Unspecified dementia, unspecified severity, without behavioral disturbance, psychotic disturbance, mood disturbance, and anxiety; E78.5 Hyperlipidemia, unspecified; Q25.1 Coarctation of aorta; K21.9 Gastro-esophageal reflux disease without esophagitis; M81.0 Age-related osteoporosis without current pathological fracture; M19.90 Unspecified osteoarthritis, unspecified site; K22.2 Esophageal obstruction; Z79.82 Long term (current) use of aspirin; Z98.49 Cataract extraction status, unspecified eye; Z90.710 Acquired absence of both cervix and uterus; Z91.81 History of falling; Z86.73 Personal history of transient ischemic attack (TIA), and cerebral infarction without residual deficits; Z82.49 Family history of ischemic heart disease and other diseases of the circulatory system